=== PATIENT | male | born 1950 | race Caucasian/White ===

== ENCOUNTER 2021-01-03 08:12 | Inpatient (IN) ==
[2021-01-03] MEDS ORDERED: IOPAMIDOL 100 ML BOTTLE IV ONE (08:13)
--- NOTE | 2021-01-03 08:42 | Emergency Department Note ---
Altered Mental Status HPI General Chief Complaint: Altered Mental Status Stated Complaint: stroke symptoms Sunday Time Seen by Provider: 01/03/21 08:24 Source: patient, family, RN notes reviewed and old records reviewed Mode of arrival: ambulatory Limitations: altered mental status History of Present Illness HPI Narrative: Narrative: MD complaint: altered mental status, confusion and weakness Onset (ago): day(s) Timing confirmed by: spouse Consistency of Symptoms: getting worse Associated symptoms: Reports seizure, syncope, weakness and difficulty walking; Denies chest pain, cough, diaphoresis, fever, chills, headaches, loss of appetite, malaise, nausea/vomiting, rash, shortness of breath, foul smelling urine, diarrhea and incontinence Related Data Home Medications Medication Instructions Recorded Confirmed levothyroxine 125 mcg PO DAILY 01/02/19 01/03/21 losartan 25 mg PO DAILY 01/03/21 01/03/21 Allergies Allergy/AdvReac Type Severity Reaction Status Date / Time No Known Drug Allergies Allergy Verified 01/03/21 08:16 Review of Systems ROS ROS Narrative: Narrative: Limitations: ROS unobtainable due to patients medical condition [facility] Narrative Patient History Narrative: Narrative: Medical/Surgical/Family History All Active Problems (Updated 01/03/21 @ 15:40 by Anthony Lundberg MD) Altered mental status (Acute) Social History Smoking Status: Former smoker Exam Narrative Narrative: Narrative: General Limitations: altered mental status General appearance: Present alert and in no apparent distress Head Head: Present atraumatic and normocephalic Eye Eye: Present normal appearance, PERRL and EOMI ENT ENT: Present mucous membranes moist and other (Tongue bite moon) Neck Neck: Present normal inspection and full ROM Chest Chest: Present normal inspection; Absent tenderness Respiratory Respiratory: Present normal lung sounds bilaterally; Absent respiratory distress Cardiovascular Cardiovascular: Present regular rate and normal rhythm; Absent systolic murmur Adbominal Abdominal: Present soft; Absent distention, tenderness, guarding and rebound Extremities Extremities: Present normal inspection and full ROM; Absent tenderness, pedal edema and pretibial edema Back Back: Present normal inspection; Absent CVA tenderness (R) and CVA tenderness (L) Neurological Neurological: Present alert and CN II-XII intact; Absent oriented X3 (Patient is alert and knows his name but is confused to where he is at and what date it is), normal gait and motor sensory deficit Psychiatric Psychiatric: Present normal affect and normal mood Skin Skin: Present warm (WNL); Absent rash Course Course Course Narrative: Discussed patient with Dr. Garcia neurology at [facility] and [facility]. Recommends MRI, admission for observation, DC with diagnosis dementia if stable Vital Signs Vital signs: Vital Signs Temperature 98.5 F 01/03/21 08:12 Pulse Rate 92 H 01/03/21 08:12 Respiratory Rate 16 01/03/21 08:12 Blood Pressure 185/96 01/03/21 08:12 Pulse Oximetry (%) 98 01/03/21 08:12 Temperature 98.5 F 01/03/21 08:12 Pulse Rate 66 01/03/21 14:31 Respiratory Rate 15 01/03/21 15:31 Blood Pressure 172/95 01/03/21 15:31 Pulse Oximetry (%) 96 01/03/21 14:31 MDM MDM Narrative Medical decision making narrative: Narrative: Lab Data Result diagrams: 01/03/21 08:44 01/03/21 08:44 Labs: Lab Results 01/03/21 01/03/21 01/03/21 Range/Units 08:44 08:44 08:44 WBC 10.0 (4.5-11.0) K/mcL RBC 5.05 (4.50-5.90) M/mcL Hgb 16.7 H (13.5-16.5) g/dL Hct 49.6 (41.0-55.0) % MCV 98.2 (80.0-100.0) fL MCH 33.1 (26.0-34.0) pg MCHC 33.7 (31.0-36.0) g/dL RDW 13.4 (11.5-14.5) % Plt Count 280 (140-440) K/mcL MPV 10.4 (7.4-10.4) fL Neut % (Auto) 71.0 (38.0-78.0) % Lymph % (Auto) 15.0 (15.0-49.0) % [place] % (Auto) 11.8 (1.0-12.0) % Eos % (Auto) 1.1 (0.0-7.0) % Baso % (Auto) 1.1 (0.0-2.0) % Lymph # (Auto) 1.51 (1.50-4.80) K/mcL [place] # (Auto) 1.18 H (0.10-0.90) K/mcL Eos # (Auto) 0.11 (0.00-0.70) K/mcL Baso # (Auto) 0.11 (0.00-0.20) K/mcL Absolute Neutrophils 7.13 (1.80-8.00) K/mcL VBG Lactic Acid (0.5-2.0) mmol/L Sodium 135 (133-145) mmol/L Potassium 3.4 (3.3-5.1) mmol/L Chloride 99 (96-108) mmol/L Carbon Dioxide 24 (22-30) mmol/L Anion Gap 12.0 (8.0-16.0) BUN 16 (8-23) mg/dL Creatinine 1.1 (0.7-1.2) mg/dL GFR Calculation 67 Glucose 112 H (70-105) mg/dL Calcium 10.6 H (8.6-10.4) mg/dL Total Bilirubin 1.2 H (0.1-1.0) mg/dL AST 21 (<40) U/L ALT 18 (<40) U/L Alkaline Phosphatase 88 (39-117) U/L Ammonia (16-60) umol/L Troponin T < 0.01 (<0.03) ng/mL Total Protein 7.2 (5.9-8.4) gm/dL Albumin 4.4 (3.2-5.2) gm/dL Globulin 2.8 (2.2-3.7) gm/dL Albumin/Globulin Ratio 1.6 (1.0-2.3) Ethyl Alcohol (<0.010) gm/dL 01/03/21 01/03/21 01/03/21 Range/Units 08:44 09:00 09:00 WBC (4.5-11.0) K/mcL RBC (4.50-5.90) M/mcL Hgb (13.5-16.5) g/dL Hct (41.0-55.0) % MCV (80.0-100.0) fL MCH (26.0-34.0) pg MCHC (31.0-36.0) g/dL RDW (11.5-14.5) % Plt Count (140-440) K/mcL MPV (7.4-10.4) fL Neut % (Auto) (38.0-78.0) % Lymph % (Auto) (15.0-49.0) % [place] % (Auto) (1.0-12.0) % Eos % (Auto) (0.0-7.0) % Baso % (Auto) (0.0-2.0) % Lymph # (Auto) (1.50-4.80) K/mcL [place] # (Auto) (0.10-0.90) K/mcL Eos # (Auto) (0.00-0.70) K/mcL Baso # (Auto) (0.00-0.20) K/mcL Absolute Neutrophils (1.80-8.00) K/mcL VBG Lactic Acid 1.5 (0.5-2.0) mmol/L Sodium (133-145) mmol/L Potassium (3.3-5.1) mmol/L Chloride (96-108) mmol/L Carbon Dioxide (22-30) mmol/L Anion Gap (8.0-16.0) BUN (8-23) mg/dL Creatinine (0.7-1.2) mg/dL GFR Calculation Glucose (70-105) mg/dL Calcium (8.6-10.4) mg/dL Total Bilirubin (0.1-1.0) mg/dL AST (<40) U/L ALT (<40) U/L Alkaline Phosphatase (39-117) U/L Ammonia 22 (16-60) umol/L Troponin T (<0.03) ng/mL Total Protein (5.9-8.4) gm/dL Albumin (3.2-5.2) gm/dL Globulin (2.2-3.7) gm/dL Albumin/Globulin Ratio (1.0-2.3) Ethyl Alcohol < 0.010 (<0.010) gm/dL ED POC Tests ED POC Tests: [place] - SARS Antigen Negative EKG Data EKG #1: EKG attestation: Yes I reviewed and interpreted this EKG. EKG shows normal: sinus rhythm Rate: normal (99) Rhythm: NSR [place]/QRS: RBBB Interpretation: nonspecific ST-T wave changes Pulse Oximetry Data Pulse Ox %: 98 Interpretation: 98% on room air and within normal limits Discharge Plan Patient/Caregiver Discharge Instructions Pt seen by PROCESS LABORATORY SPECIALIST/PA only: No Clinical Impression: Altered mental status Patient Disposition: Xfer As Inpt ([facility]) Condition: Fair Follow up with: Chiara Bateman ARNP [Primary Care Provider] - Prescriptions: No Action levothyroxine 125 MCG tablet 125 mcg PO DAILY RF: 0 losartan 25 mg tablet 25 mg PO DAILY RF: 0
--- NOTE | 2021-01-03 09:30 | Cat Scan Report ---
CLINICAL INFORMATION: Altered mental status COMPARISON: None. TECHNIQUE: 2.5 mm helical slices were obtained in the skull base to vertex. Following reconstruction, axial reformatted images were reviewed at bone and parenchymal windows. The exam was performed using radiation dose optimization techniques including, but not limited to, automated exposure control, adjustment of the mA and/or kV according to patient size and use of iterative reconstruction technique. FINDINGS: The ventricles, sulci, fissures, and cisterns are normal in size and configuration. No extra-axial fluid collections are identified. 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 There is no evidence of hemorrhage, mass effect, or edema. Bone windows show no osseous abnormality. IMPRESSION: No acute disease. 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
--- NOTE | 2021-01-03 09:51 | XRay Report ---
CLINICAL INFORMATION: AMS COMPARISON: None. FINDINGS: Heart size, mediastinum and pulmonary vessels are normal for technique. Few tiny calcified granulomas in the perihilar regions noted. No infiltrates or effusions. IMPRESSION: Negative Interpreted and Authenticated by: Gomez Walter 01/03/21
[2021-01-03 09:53] LABS: Basophils # (Auto) 0.11 K/mcL (0.00-0.20); Basophils % (Auto) 1.1 % (0.0-2.0); Eosinophils # (Auto) 0.11 K/mcL (0.00-0.70); Eosinophils % (Auto) 1.1 % (0.0-7.0); Hematocrit 49.6 % (41.0-55.0); Hemoglobin 16.7 g/dL (13.5-16.5); Lymphocytes # (Auto) 1.51 K/mcL (1.50-4.80); Mean Cell Volume 98.2 fL (80.0-100.0); Mean Corpuscular HGB Conc 33.7 g/dL (31.0-36.0); Mean Platelet Volume 10.4 fL (7.4-10.4); Monocytes # (Auto) 1.18 K/mcL (0.10-0.90); Monocytes % (Auto) 11.8 % (1.0-12.0); Platelet Count 280 K/mcL (140-440); RBC 5.05 M/mcL (4.50-5.90); Red Cell Distribution Width 13.4 % (11.5-14.5)
[2021-01-03 10:16] LABS: ALT/SGPT 18 U/L (<40); AST/SGOT 21 U/L (<40); Albumin 4.4 gm/dL (3.2-5.2); Albumin/Globulin Ratio 1.6 (1.0-2.3); Alcohol, Blood < 10.0 mg/dL; Alcohol,Blood < 0.010 gm/dL (<0.010); Alkaline Phosphatase 88 U/L (39-117); Bilirubin,Total 1.2 mg/dL (0.1-1.0); Blood Urea Nitrogen 16 mg/dL (8-23); Calcium 10.6 mg/dL (8.6-10.4); Carbon Dioxide 24 mmol/L (22-30); Chloride 99 mmol/L (96-108); Globulin 2.8 gm/dL (2.2-3.7); Glomerular Filtration Rate 67; Glucose 112 mg/dL (70-105)
[2021-01-03] MEDS ORDERED: 0.9 % SODIUM CHLORIDE 1,000 ML IV ONE ×2 (11:34→15:42)
[2021-01-03] MEDS ORDERED: THIAMINE 100 MG in 0.9 % SODIUM CHLORIDE 50 ML IV ONE (11:49)
--- NOTE | 2021-01-03 12:18 | Cat Scan Report ---
CLINICAL INFORMATION: Acute mental status change. Stroke symptoms COMPARISON: None. TECHNIQUE: 80 cc of Isovue-370 were injected intravenously , and using SmartPrep to maximize cerebral arterial opacification, 0.625 mm helical slices were obtained from the skull base through the cerebral vertex. Following reconstruction , sagittal, coronal and axial reformatted images were processed and reviewed at multiple windows and levels. 3D volume rendered and MIP images were acquired at a independent workstation. The exam was performed using radiation dose optimization techniques including, but not limited to, automated exposure control, adjustment of the mA and/or kV according to patient size and use of iterative reconstruction technique. FINDINGS: The intracranial internal carotid, vertebral, basilar, intracranial anterior middle and posterior cerebral arteries are well-opacified and normal in contour and caliber without embolus, thrombus or significant stenosis. The superficial and deep cerebral veins and deep venous sinuses are patent. IMPRESSION: Normal. Interpreted and Authenticated by: Gomez Walter 01/03/21
--- NOTE | 2021-01-03 12:25 | Cat Scan Report ---
CLINICAL INFORMATION: Acute mental status change and stroke symptoms. COMPARISON: None. TECHNIQUE: 80 cc of Isovue-370 were injected intravenously, and using SmartPrep to maximize arterial opacification, 0.625 mm helical slices were obtained from the thoracic aortic arch through the [place] of [place]. Following reconstruction, 2.5mm sagittal, coronal and axial reformatted images were processed and reviewed at standard and bone algorithm/window. 3-D volume rendered, CPR and MIP images were processed using a [employer] work station.The exam was performed using radiation dose optimization techniques including, but not limited to, automated exposure control, adjustment of the mA and/or kV according to patient size and use of iterative reconstruction technique. FINDINGS: The aortic arch is normal diameter with diffuse intimal thickening. Aortic branching is conventional. The brachiocephalic, both subclavian and both vertebral arteries are widely patent. There is minimal fibrofatty plaque in the proximal right internal carotid artery, but no stenosis. The remaining right internal, external and common carotid arteries are widely patent. On the left side, there is a stenosis, less than 50% in the proximal internal carotid artery due to fibrofatty plaque in the posterior wall of the artery. The remaining left internal and the entire left external and left common carotid arteries widely patent. No soft tissue abnormalities. IMPRESSION: Less than 50% stenosis of the proximal left internal carotid artery. Exam is otherwise normal Interpreted and Authenticated by: Gomez Walter 01/03/21
--- NOTE | 2021-01-03 15:29 | Magnetic Resonance Report ---
CLINICAL INFORMATION: Confusion COMPARISON: CT angiogram head 01/03/2021 TECHNIQUE: Sagittal T1 FLAIR, axial diffusion and T2 FLAIR images were acquired FINDINGS: The ventricles, sulci, fissures and cisterns show mild symmetric enlargement patible with mild age-related atrophy-no extra-axial fluid collection or mass appreciated. Scattered chronic ischemic foci in deep cerebral white matter are less then typically seen in this age group. There are no regions of restricted diffusion suggest acute infarct. No hemorrhage, mass effect or edema. Signal void in intracerebral arteries are normal. IMPRESSION: Mild atrophy and scattered chronic ischemic foci in deep cerebral white matter-expected for age. No evidence of acute infarction or other acute intracerebral abnormality Interpreted and Authenticated by: Gomez Walter 01/03/21
--- NOTE | 2021-01-03 15:36 | Internal Med History&Physical ---
HPI History of Present Illness Patient information: Note initiated : 01/03/21 at 3:36 pm Service Date, if different from initiated Date: [] Patient: Sander Mcintosh a 70 y/o M admitted on for Stroke Symptoms Sunday. Chief Complaint: Confusion History of present illness: Mr. Mcintosh is a 70 year old M with history of hypertension/hypothyroidism who lives fairly independently. Patient is neighbor and friend Mackenzie found him in a state of days this morning. She subsequently called her son who is an EMT and recommended take him to the ER for evaluation for concerns of stroke symptom Initial work-up in the ER was unremarkable with a negative biochemical profile/CT head. Neurology was consulted and recommend MRI which is unremarkable for acute infarction, CT angiogram head neck negative for acute thrombosis. Hospital service was consulted for further evaluation due to persistent change in mental status. At the time of my evaluation patient is accompanied with friend Mackenzie. He was noted to answer any question and appears very confused. He is disoriented to time place and person. Most of the history was obtained from neighbor and ER physician. There however does not appear an asymmetric weakness or facial droop on initial exam. Telemetry monitoring shows sinus tachycardia with systolics 190. Review of systems Attempted but could not perform due to patient mental status PFSH PFSH All Active Problems (Updated 01/03/21 @ 15:40 by Anthony Lundberg MD) Altered mental status (Acute) MEDS/ALLERGIES Home Medications and Allergies Home Medications Medication Instructions Recorded Confirmed Type levothyroxine 125 mcg PO DAILY 01/02/19 01/03/21 History losartan 25 mg PO DAILY 01/03/21 01/03/21 History Allergies Allergy/AdvReac Type Severity Reaction Status Date / Time No Known Drug Allergies Allergy Verified 01/03/21 08:16 EXAM Constitutional Vitals: Temp Pulse Resp BP Pulse Ox 98.5 F 79 17 157/97 97 01/03/21 08:12 01/03/21 14:01 01/03/21 11:31 01/03/21 14:01 01/03/21 14:01 Confused and disoriented Head normocephalic Oral cavity dry No ear nose discharge Eye movement symmetrical Neck supple no lymphadenopathy S1-S2 tachycardia Nonlabored breathing Nondistended nontender abdomen Lower extremity no cyanosis clubbing or joint swelling Skin no suspicious lesion Psych anxious and confused Neuro -symmetrical strength, no obvious motor deficits DATA Data Completed and Pending Labs: Labs from last 24 hours 01/03/21 01/03/21 01/03/21 09:00 09:00 08:44 WBC RBC Hgb Hct MCV MCH MCHC RDW Plt Count MPV Neut % (Auto) Lymph % (Auto) [place] % (Auto) Eos % (Auto) Baso % (Auto) Lymph # (Auto) [place] # (Auto) Eos # (Auto) Baso # (Auto) Absolute Neutrophils VBG Lactic Acid 1.5 Sodium Potassium Chloride Carbon Dioxide Anion Gap BUN Creatinine GFR Calculation Glucose Calcium Total Bilirubin AST ALT Alkaline Phosphatase Ammonia 22 Troponin T Total Protein Albumin Globulin Albumin/Globulin Ratio Drug Screen Specimen Ethyl Alcohol < 0.010 01/03/21 01/03/21 01/03/21 08:44 08:44 08:44 WBC RBC Hgb Hct MCV MCH MCHC RDW Plt Count MPV Neut % (Auto) Lymph % (Auto) [place] % (Auto) Eos % (Auto) Baso % (Auto) Lymph # (Auto) [place] # (Auto) Eos # (Auto) Baso # (Auto) Absolute Neutrophils VBG Lactic Acid Sodium 135 Potassium 3.4 Chloride 99 Carbon Dioxide 24 Anion Gap 12.0 BUN 16 Creatinine 1.1 GFR Calculation 67 Glucose 112 H Calcium 10.6 H Total Bilirubin 1.2 H AST 21 ALT 18 Alkaline Phosphatase 88 Ammonia Troponin T < 0.01 Total Protein 7.2 Albumin 4.4 Globulin 2.8 Albumin/Globulin Ratio 1.6 Drug Screen Specimen Pending Ethyl Alcohol 01/03/21 08:44 WBC 10.0 RBC 5.05 Hgb 16.7 H Hct 49.6 MCV 98.2 MCH 33.1 MCHC 33.7 RDW 13.4 Plt Count 280 MPV 10.4 Neut % (Auto) 71.0 Lymph % (Auto) 15.0 [place] % (Auto) 11.8 Eos % (Auto) 1.1 Baso % (Auto) 1.1 Lymph # (Auto) 1.51 [place] # (Auto) 1.18 H Eos # (Auto) 0.11 Baso # (Auto) 0.11 Absolute Neutrophils 7.13 VBG Lactic Acid Sodium Potassium Chloride Carbon Dioxide Anion Gap BUN Creatinine GFR Calculation Glucose Calcium Total Bilirubin AST ALT Alkaline Phosphatase Ammonia Troponin T Total Protein Albumin Globulin Albumin/Globulin Ratio Drug Screen Specimen Ethyl Alcohol A/P Narrative A/P Narrative: * Acute change in mental status-unclear etiology. Patient is not on psychotropic drugs, no evidence of infection with normal WBC/lactate/absence of fever/neck stiffness. No significant metabolic derangement except for calcium 10.6. Negative neuroimaging. Admit as observation. Start thiamine. Urine drug screen pending. * Suboptimally controlled hypertension-continue home medication, hydralazine as needed * Hypercalcemia likely secondary to volume depletion continue crystalloids * History of hypothyroid continue toxin * Minimal elevation of bilirubin without right upper quadrant tenderness. Continue to monitor * Prophylaxis Heparin Plan * Observation admit * Crystalloids * Supportive treatment * Urine drug screen/UA * Nutrition support Time Spent With Patient Time: Total time spent is greater than 50% in coordination of care (as documented) at patient's floor/unit and/or counseling patient:
[2021-01-03] MEDS ORDERED: ONDANSETRON 4 MG ODT TABLET SL PRN (17:09)
[2021-01-03] MEDS ORDERED: ACETAMINOPHEN 650 MG/65 ML BAG IV PRN (17:09)
[2021-01-03] MEDS ORDERED: MAGNESIUM SULFATE 2 GM/50 ML BAG IV PRN (17:09)
[2021-01-03] MEDS ORDERED: POLYETHYLENE GLYCOL 3350 17 GM PACKET PO PRN (17:09)
[2021-01-03] MEDS ORDERED: 0.9 % SODIUM CHLORIDE 1,000 ML IV SCH (17:09)
[2021-01-03] MEDS ORDERED: POTASSIUM CHLORIDE 40 MEQ in DEXTROSE 5% IN WATER 500 ML IV PRN (17:09)
[2021-01-03] MEDS ORDERED: METOPROLOL TARTRATE 5 MG/5 ML VIAL IV PRN (17:09)
[2021-01-03] MEDS ORDERED: BISACODYL 10 MG SUPP.RECT PR PRN (17:09)
[2021-01-03] MEDS ORDERED: ONDANSETRON 4 MG/2 ML VIAL IV PRN (17:09)
[2021-01-03] MEDS ORDERED: THIAMINE 100 MG in 0.9 % SODIUM CHLORIDE 50 ML IV SCH (17:09)
[2021-01-03] MEDS: hydrALAZINE 20 MG/ML VIAL IV PRN (17:30)
[2021-01-03] MEDS: 0.9 % SODIUM CHLORIDE 1,000 ML IV SCH (18:35)
[2021-01-03] MEDS ORDERED: POTASSIUM CHLORIDE 20 MEQ/10 ML VIAL IV ONE (18:45)
[2021-01-03] MEDS ORDERED: LORazepam 2 MG/ML VIAL ONE (19:27)
[2021-01-03] MEDS ORDERED: LORazepam 2 MG/ML VIAL IV ONE (19:28)
[2021-01-03] MEDS ORDERED: levETIRAcetam 500 MG in 0.9 % SODIUM CHLORIDE 100 ML IV ONE (19:29)
[2021-01-03] MEDS ORDERED: levETIRAcetam 1,000 MG in 0.9 % SODIUM CHLORIDE 100 ML IV ONE (19:34)
[2021-01-03] MEDS: SENNOSIDES/DOCUSATE SODIUM 1 TAB TABLET PO SCH (20:04)
[2021-01-03] MEDS: DOCUSATE SODIUM 100 MG CAPSULE PO SCH (20:04)
[2021-01-03] MEDS: 0.9 % SODIUM CHLORIDE 10 ML SYRINGE IV SCH (20:04)
[2021-01-03] MEDS: HEPARIN 5,000 UNIT/ML VIAL SQ SCH (20:05)
[2021-01-03] MEDS ORDERED: levETIRAcetam 500 MG in 0.9 % SODIUM CHLORIDE 100 ML IV SCH (21:00)
[2021-01-03 21:55] LABS: Appearance,Urine CLEAR (Clear); Bilirubin,Urine Negative (Negative); Color,Urine YELLOW; Culture Indicated,Urine No; Glucose,Urine (UA) Negative (Negative); Ketones,Urine 20 mg/dL (Negative); Leukocyte Esterase,Urine Negative /ug (Negative); Mucus,Urine FEW /hpf; Nitrate,Urine Negative (Negative); Protein,Urine Negative (Negative); Specific Gravity,Urine 1.028 (1.000-1.035); Urine Blood 0.03 mg/dL (Negative); Urine RBC 8 /hpf (0-3); Urine Squamous Epithelial Cell < 1 /hpf (0-4); Urine WBC 5 /hpf (0-4)
[2021-01-04] MEDS: 0.9 % SODIUM CHLORIDE 10 ML SYRINGE IV SCH ×3 (05:02→20:20)
[2021-01-04] MEDS: hydrALAZINE 20 MG/ML VIAL IV PRN ×2 (06:02→21:10)
[2021-01-04 07:09] LABS: Basophils # (Auto) 0.09 K/mcL (0.00-0.20); Basophils % (Auto) 0.9 % (0.0-2.0); Eosinophils # (Auto) 0.08 K/mcL (0.00-0.70); Eosinophils % (Auto) 0.8 % (0.0-7.0); Hematocrit 47.4 % (41.0-55.0); Hemoglobin 15.8 g/dL (13.5-16.5); Lymphocytes # (Auto) 1.41 K/mcL (1.50-4.80); Mean Cell Volume 98.5 fL (80.0-100.0); Mean Corpuscular HGB Conc 33.3 g/dL (31.0-36.0); Mean Platelet Volume 10.7 fL (7.4-10.4); Neutrophils % (Auto) 73.3 % (38.0-78.0); Platelet Count 274 K/mcL (140-440); RBC 4.81 M/mcL (4.50-5.90); Red Cell Distribution Width 13.4 % (11.5-14.5)
[2021-01-04 08:04] LABS: ALT/SGPT 14 U/L (<40); AST/SGOT 17 U/L (<40); Albumin 3.9 gm/dL (3.2-5.2); Albumin/Globulin Ratio 1.4 (1.0-2.3); Alkaline Phosphatase 78 U/L (39-117); Bilirubin,Direct 0.2 mg/dL (<0.3); Bilirubin,Total 0.8 mg/dL (0.1-1.0); Blood Urea Nitrogen 12 mg/dL (8-23); Calcium 10.1 mg/dL (8.6-10.4); Carbon Dioxide 21 mmol/L (22-30); Chloride 107 mmol/L (96-108); Globulin 2.7 gm/dL (2.2-3.7); Glomerular Filtration Rate 85; Glucose 85 mg/dL (70-105); Lactate Dehydrogenase 264 U/L (135-225); Triglycerides 110 mg/dL (<150); Uric Acid 6.3 mg/dL (2.5-8.0)
[2021-01-04] MEDS: THIAMINE 100 MG in 0.9 % SODIUM CHLORIDE 50 ML IV SCH (09:02)
[2021-01-04] MEDS: 0.9 % SODIUM CHLORIDE 1,000 ML IV SCH ×3 (09:03→19:48)
[2021-01-04] MEDS: DOCUSATE SODIUM 100 MG CAPSULE PO SCH ×2 (09:08→20:21)
[2021-01-04] MEDS: HEPARIN 5,000 UNIT/ML VIAL SQ SCH ×2 (09:08→20:21)
[2021-01-04] MEDS: levETIRAcetam 500 MG TABLET PO SCH ×2 (09:09→20:21)
[2021-01-04] MEDS: LEVOTHYROXINE 125 MCG TABLET PO SCH (09:09)
[2021-01-04] MEDS: ACETAMINOPHEN 325 MG TABLET PO PRN (09:09)
[2021-01-04] MEDS: LOSARTAN 25 MG TABLET PO SCH (09:09)
[2021-01-04] MEDS: MULTIVIT,THER IRON,CA,FA & MIN 1 TABLET PO SCH (09:10)
--- NOTE | 2021-01-04 12:16 | Internal Med Progress Note ---
SUBJECTIVE Subjective Patient information: Note initiated : 01/04/21 at 12:12 pm Service Date, if different from initiated Date: [] Patient: Sander Mcintosh a 70 y/o M admitted on 01/03/21 for Stroke Symptoms Sunday. Chief Complaint: [] Interval history: Mr. Mcintosh is a 70 year old M with history of hypertension/hypothyroidism who lives fairly independently. Patient is neighbor and friend Mackenzie found him in a state of days this morning. She subsequently called her son who is an EMT and recommended take him to the ER for evaluation for concerns of stroke symptom Initial work-up in the ER was unremarkable with a negative biochemical prof ile/CT head. Neurology was consulted and recommend MRI which is unremarkable for acute infarction, CT angiogram head neck negative for acute thrombosis. Hospital service was consulted for further evaluation due to persistent change in mental status. At the time of my evaluation patient is accompanied with friend Mackenzie. He was noted to answer any question and appears very confused. He is disoriented to time place and person. Most of the history was obtained from neighbor and ER physician. There however does not appear an asymmetric weakness or facial droop on initial exam. Telemetry monitoring shows sinus tachycardia with systolics 190. 5/4-patient experienced generalized tonic-clonic seizure last evening. Status post Keppra load and 500 Keppra twice daily. Doing well. Remains encephalopathic. Case discussed with anesthesia Dr. Galaviz. Will undergo lumbar puncture today. Hemoglobin 15.8 white count normal, phosphorus 2, UA unremarkable, calcium 10.1. Afebrile Constitutional Vitals: Vital Signs Temp Pulse Resp BP Pulse Ox 98.2 F 92 H 16 163/94 94 01/04/21 08:08 01/03/21 16:31 01/04/21 10:17 01/04/21 10:17 01/04/21 08:08 Period Temp Pulse Resp BP Sys/Rodriguez Pulse Ox Last 24 Hr 98.0 F-99.0 F 66-99 11-28 121-192/68-159 87-99 Intake and Output 01/03/21 01/04/21 01/04/21 21:59 05:59 13:59 Intake Total 2161 760 1000 Output Total 2 302 250 Balance 2159 458 750 Weight 95.878 kg Alert but confused to time place and person Nonlabored breathing No telemetry events Minimal anxiety Intake & Output: Intake & Output 01/03/21 01/04/21 01/04/21 21:59 05:59 13:59 Intake Total 2161 760 1000 Output Total 2 302 250 Balance 2159 458 750 Weight 95.878 kg Intake: IV 2161 520 1000 Sodium Chloride 0.9% 1,000 ml @ 2000 1000 100 mls/hr IV .Q10H [facility]IGDALIA Rx#: [id number] Potassium Chloride 40 Meq In 520 Dextrose 5% in Water 500 ml @ 130 mls/hr IV UD PRN Rx#: [id number] Vitamin B1 100 mg In Sodium 51 Chloride 0.9% 50 ml @ 50 mls/hr IV ONCE ONE Rx#:[id number] Keppra 1,000 mg In Sodium 110 Chloride 0.9% 100 ml @ 200 mls/ hr IV ONCE ONE Rx#:[id number] Oral 240 Output: Void Amount 300 250 # of times incontinent of urine 2 2 Other: Meal Dinner Percent of Meal Consumed 25% Feeding Ability Needs Supervision Urine Appearance Clear Urine Color Dark Yellow Dark Cassie OBJ DATA Labs CBC & Chem 7: 01/04/21 05:00 01/04/21 05:00 Labs: Abnormal Lab Results 01/04/21 01/04/21 01/03/21 05:00 05:00 21:00 Hgb MPV 10.7 H Lymph % (Auto) 14.0 L Lymph # (Auto) 1.41 L [place] # (Auto) 1.10 H Carbon Dioxide 21 L Glucose Calcium Phosphorus 2.0 L Total Bilirubin Lactate Dehydrogenase 264 H Urine Ketones 20 A Urine Urobilinogen 4.0 A Urine RBC 8 H Urine WBC 5 H Urine Mucus Few A 01/03/21 01/03/21 08:44 08:44 Hgb 16.7 H MPV Lymph % (Auto) Lymph # (Auto) [place] # (Auto) 1.18 H Carbon Dioxide Glucose 112 H Calcium 10.6 H Phosphorus Total Bilirubin 1.2 H Lactate Dehydrogenase Urine Ketones Urine Urobilinogen Urine RBC Urine WBC Urine Mucus Meds: Medications Acetaminophen (Acetaminophen 325 Mg Tablet) 650 mg PO Q4-6HP PRN; Protocol PRN Reason: Per Pain Protocol/Fever > 101 Last Admin: 01/04/21 09:09 Dose: 650 mg Documented by: Bisacodyl (Bisacodyl 10 Mg Supp.Rect) 10 mg [place] Q2-3DAYS PRN PRN Reason: Constipation Docusate Sodium (Docusate Sodium 100 Mg Capsule) 100 mg PO BID [facility] Last Admin: 01/04/21 09:08 Dose: 100 mg Documented by: Heparin Sodium (Porcine) (Heparin 5,000 Unit/Ml Vial) 5,000 unit SQ Q12 [facility]IG[facility]AL[facility] Last Admin: 01/04/21 09:08 Dose: 5,000 unit Documented by: Hydralazine HCl (Hydralazine 20 Mg/Ml Vial) 10 mg IV Q4-6HP PRN PRN Reason: Hypertension Last Admin: 01/04/21 06:02 Dose: 10 mg Documented by: Potassium Chloride 40 meq/ (Dextrose) 520 mls @ 130 mls/hr IV UD PRN PRN Reason: K+ = or < 3.5 Last Infusion: 01/04/21 00:13 Dose: Infused Documented by: Magnesium Sulfate (Magnesium Sulfate) 2 gm in 50 mls @ 50 mls/hr IV UD PRN PRN Reason: MG = or < 1.7 Acetaminophen (Ofirmev) 650 mg in 65 mls @ 130 mls/hr IV Q6HP PRN; Protocol PRN Reason: Per Pain Protocol/Fever > 101 Sodium Chloride (Sodium Chloride 0.9%) 1,000 mls @ 100 mls/hr IV .Q10H [facility] Last Admin: 01/04/21 09:03 Dose: 100 mls/hr Documented by: Thiamine HCl 100 mg/ Sodium (Chloride) 51 mls @ 50 mls/hr IV DAILY [facility] Stop: 01/05/21 10:02 Last Admin: 01/04/21 09:02 Dose: 50 mls/hr Documented by: Iron Carb/Multivit/[place]/Folic Acid (Multivit,Ther Iron,Ca,Fa & Min 1 Tablet) 1 tab PO DAILY [facility] Last Admin: 01/04/21 09:10 Dose: 1 tab Documented by: Levetiracetam (Levetiracetam 500 Mg Tablet) 500 mg PO BID [facility] Last Admin: 01/04/21 09:09 Dose: 500 mg Documented by: Levothyroxine Sodium (Levothyroxine 125 Mcg Tablet) 125 mcg PO ACB [facility] Last Admin: 01/04/21 09:09 Dose: 125 mcg Documented by: Losartan Potassium (Losartan 25 Mg Tablet) 25 mg PO DAILY [facility] Last Admin: 01/04/21 09:09 Dose: 25 mg Documented by: Melatonin (Melatonin 3 Mg Tablet) 3 mg PO HSP PRN PRN Reason: Insomnia Metoprolol Tartrate (Metoprolol Tartrate 5 Mg/5 Ml Vial) 5 mg IV Q5M PRN PRN Reason: Heart Rate > 140 bpm Ondansetron HCl (Ondansetron 4 Mg Odt Tablet) 4 mg SL Q4-6HP PRN; Protocol PRN Reason: Nausea And Vomiting Last Admin: 01/04/21 09:09 Dose: 4 mg Documented by: Ondansetron HCl (Ondansetron 4 Mg/2 Ml Vial) 4 mg IV Q4-6HP PRN; Protocol PRN Reason: Nausea And Vomiting Polyethylene Glycol (Polyethylene Glycol 3350 17 Gm Packet) 17 gm PO DAILYP PRN PRN Reason: Constipation Senna/Docusate Sodium (Sennosides/Docusate Sodium 1 Tab Tablet) 1 tab PO HS [facility] Last Admin: 01/03/21 20:04 Dose: Not Given Documented by: Sodium Chloride (0.9 % Sodium Chloride 10 Ml Syringe) 10 ml IV Q8 [facility] Last Admin: 01/04/21 05:02 Dose: 10 ml Documented by: A/P Narrative A/P Narrative: * Acute change in mental status-rule out acute encephalitis secondary to infectious etiology. Lumbar puncture today. Negative neuroimaging. Continue thiamine. * New onset generalized tonic-clonic seizure currently on Keppra. Seizure-free since Keppra load * Suboptimally controlled hypertension-continue home medication, hydralazine as needed, start beta-lauri * Hypercalcemia likely secondary to volume depletion -resolved with crystalloids * History of hypothyroid continue thyroxine * Minimal elevation of bilirubin without right upper quadrant tenderness. Normalized * Prophylaxis Heparin(held for LP) Plan * Transition to inpatient status * Lumbar puncture * Start beta-lauri * Continue supportive treatment Time Spent With Patient Time: Total time spent is greater than 50% in coordination of care (as documented) at patient's floor/unit and/or counseling patient: QUALITY Stroke Onset of Symptoms Date: 01/01/21 Symptom Onset Unknown: Yes VTE Deep Vein Thrombosis/Pulmonary Embolism Present on Admission: No
[2021-01-04] MEDS ORDERED: NEUTRA PHOS 1 PACKET PO PRN (12:23)
[2021-01-04] MEDS: METOPROLOL TARTRATE 25 MG TABLET PO SCH ×2 (13:03→20:20)
[2021-01-04 17:14] LABS: Appearance,CSF Clear; Nucleated Cells,CSF 0 /cumm (0-5); Red Blood Cell,CSF 2 /cumm (0-1)
[2021-01-04 17:19] LABS: Glucose,CSF 69 mg/dL (40-70)
[2021-01-04] MEDS: POTASSIUM CHLORIDE 20 MEQ TABLET PO PRN (17:42)
[2021-01-04] MEDS: MELATONIN 3 MG TABLET PO PRN (20:20)
[2021-01-04] MEDS: SENNOSIDES/DOCUSATE SODIUM 1 TAB TABLET PO SCH (20:21)
[2021-01-05] MEDS: 0.9 % SODIUM CHLORIDE 1,000 ML IV SCH ×3 (04:20→11:34)
[2021-01-05] MEDS: 0.9 % SODIUM CHLORIDE 10 ML SYRINGE IV SCH ×3 (06:03→21:04)
[2021-01-05] MEDS: LEVOTHYROXINE 125 MCG TABLET PO SCH (06:39)
[2021-01-05 07:11] LABS: Basophils % (Auto) 1.1 % (0.0-2.0); Eosinophils # (Auto) 0.09 K/mcL (0.00-0.70); Hematocrit 47.9 % (41.0-55.0); Hemoglobin 16.1 g/dL (13.5-16.5); Lymphocytes # (Auto) 1.49 K/mcL (1.50-4.80); Lymphocytes % (Auto) 15.8 % (15.0-49.0); Mean Cell Volume 97.6 fL (80.0-100.0); Mean Corpuscular HGB Conc 33.6 g/dL (31.0-36.0); Mean Platelet Volume 10.8 fL (7.4-10.4); Monocytes % (Auto) 10.6 % (1.0-12.0); Neutrophils % (Auto) 71.5 % (38.0-78.0); Platelet Count 292 K/mcL (140-440); RBC 4.91 M/mcL (4.50-5.90); Red Cell Distribution Width 13.2 % (11.5-14.5); WBC 9.5 K/mcL (4.5-11.0)
[2021-01-05 07:42] LABS: ALT/SGPT 12 U/L (<40); AST/SGOT 13 U/L (<40); Albumin 3.9 gm/dL (3.2-5.2); Albumin/Globulin Ratio 1.5 (1.0-2.3); Alkaline Phosphatase 78 U/L (39-117); Bilirubin,Direct 0.2 mg/dL (<0.3); Bilirubin,Total 0.7 mg/dL (0.1-1.0); Blood Urea Nitrogen 11 mg/dL (8-23); Carbon Dioxide 19 mmol/L (22-30); Chloride 106 mmol/L (96-108); Globulin 2.6 gm/dL (2.2-3.7); Glomerular Filtration Rate 89; Glucose 98 mg/dL (70-105); Lactate Dehydrogenase 189 U/L (135-225); Phosphorous 1.9 mg/dL (2.5-4.5); Triglycerides 123 mg/dL (<150); Uric Acid 5.6 mg/dL (2.5-8.0)
[2021-01-05] MEDS: LOSARTAN 25 MG TABLET PO SCH (08:07)
[2021-01-05] MEDS: METOPROLOL TARTRATE 25 MG TABLET PO SCH ×2 (08:07→21:04)
[2021-01-05] MEDS: HEPARIN 5,000 UNIT/ML VIAL SQ SCH ×2 (08:07→21:04)
[2021-01-05] MEDS: MULTIVIT,THER IRON,CA,FA & MIN 1 TABLET PO SCH (08:07)
[2021-01-05] MEDS: DOCUSATE SODIUM 100 MG CAPSULE PO SCH ×2 (08:07→21:03)
[2021-01-05] MEDS: THIAMINE 100 MG in 0.9 % SODIUM CHLORIDE 50 ML IV SCH (08:07)
[2021-01-05] MEDS: levETIRAcetam 500 MG TABLET PO SCH (08:07)
[2021-01-05] MEDS: POTASSIUM CHLORIDE 20 MEQ TABLET PO PRN (09:16)
--- NOTE | 2021-01-05 09:28 | XRay Report ---
CLINICAL INFORMATION: Interval Change COMPARISON: 01/03/2021 FINDINGS: Heart size, mediastinum and pulmonary vessels are normal. Lungs are clear. No effusions. IMPRESSION: Normal Interpreted and Authenticated by: Gomez Walter 01/05/21
[2021-01-05] MEDS ORDERED: OLANZapine 10 MG VIAL IM ONE (11:00)
--- NOTE | 2021-01-05 11:40 | Internal Med Progress Note ---
SUBJECTIVE Subjective Patient information: Note initiated : 01/05/21 at 11:37 am Service Date, if different from initiated Date: [] Patient: Sander Mcintosh a 70 y/o M admitted on 01/03/21 for Stroke Symptoms Sunday. Chief Complaint: [] Interval history: Mr. Mcintosh is a 70 year old M with history of hypertension/hypothyroidism who lives fairly independently. Patient is neighbor and friend Mackenzie found him in a state of days this morning. She subsequently called her son who is an EMT and recommended take him to the ER for evaluation for concerns of stroke symptom Initial work-up in the ER was unremarkable with a negative biochemical prof ile/CT head. Neurology was consulted and recommend MRI which is unremarkable for acute infarction, CT angiogram head neck negative for acute thrombosis. Hospital service was consulted for further evaluation due to persistent change in mental status. At the time of my evaluation patient is accompanied with friend Mackenzie. He was noted to answer any question and appears very confused. He is disoriented to time place and person. Most of the history was obtained from neighbor and ER physician. There however does not appear an asymmetric weakness or facial droop on initial exam. Telemetry monitoring shows sinus tachycardia with systolics 190. 5/4-patient experienced generalized tonic-clonic seizure last evening. Status post Keppra load and 500 Keppra twice daily. Doing well. Remains encephalopathic. Case discussed with anesthesia Dr. Galaviz. Will undergo lumbar puncture today. Hemoglobin 15.8 white count normal, phosphorus 2, UA unremarkable, calcium 10.1. Afebrile 5/5 patient remains encephalopathic.-On Keppra twice daily. No further seizure activity. However very confused. Agitation requiring antipsychotics, start Precedex drip, stable labs, urine drug screen pending, sodium 138 potassium 3.5 calcium 10, CSF studies 0 nucleated cell with normal protein and glucose. Continue monitoring. Constitutional Vitals: Vital Signs Temp Pulse Resp BP Pulse Ox 98.1 F 74 18 165/93 94 01/05/21 10:01 01/05/21 00:36 01/05/21 04:01 01/05/21 10:01 01/05/21 04:27 Period Temp Pulse Resp BP Sys/Rodriguez Pulse Ox Last 24 Hr 97.8 F-99.1 F 74-77 18 136-185/90-118 91-97 Intake and Output 01/04/21 01/05/21 01/05/21 21:59 05:59 13:59 Intake Total 1340 1425 116 Output Total 200 476 1 Balance 1140 949 115 Weight 94.801 kg agitated and confused Nonlabored breathing No further seizure episodes No telemetry events Intake & Output: Intake & Output 01/04/21 01/05/21 01/05/21 21:59 05:59 13:59 Intake Total 1340 1425 116 Output Total 200 476 1 Balance 1140 949 115 Weight 94.801 kg Intake: IV 1000 1000 116 Sodium Chloride 0.9% 1,000 ml @ 1000 1000 100 mls/hr IV .Q10H [facility] Rx#: [id number] Vitamin B1 100 mg In Sodium 51 Chloride 0.9% 50 ml @ 50 mls/hr IV DAILY [facility]IG[facility] Rx#:[id number] Oral 340 425 Output: Void Amount 200 475 # of times incontinent of urine 1 1 Other: Meal Lunch Percent of Meal Consumed 75% Urine Appearance Clear Clear Urine Color Dark Yellow Bright Yellow OBJ DATA Labs CBC & Chem 7: 01/05/21 05:00 01/05/21 05:00 Labs: Abnormal Lab Results 01/05/21 01/05/21 01/04/21 05:00 05:00 15:00 Hgb MPV 10.8 H Lymph % (Auto) Lymph # (Auto) 1.49 L [place] # (Auto) 1.00 H Carbon Dioxide 19 L Glucose Calcium Phosphorus 1.9 L Total Bilirubin Lactate Dehydrogenase Urine Ketones Urine Urobilinogen Urine RBC Urine WBC Urine Mucus CSF RBC 2 H 01/04/21 01/04/21 01/03/21 05:00 05:00 21:00 Hgb MPV 10.7 H Lymph % (Auto) 14.0 L Lymph # (Auto) 1.41 L [place] # (Auto) 1.10 H Carbon Dioxide 21 L Glucose Calcium Phosphorus 2.0 L Total Bilirubin Lactate Dehydrogenase 264 H Urine Ketones 20 A Urine Urobilinogen 4.0 A Urine RBC 8 H Urine WBC 5 H Urine Mucus Few A CSF RBC 01/03/21 01/03/21 08:44 08:44 Hgb 16.7 H MPV Lymph % (Auto) Lymph # (Auto) [place] # (Auto) 1.18 H Carbon Dioxide Glucose 112 H Calcium 10.6 H Phosphorus Total Bilirubin 1.2 H Lactate Dehydrogenase Urine Ketones Urine Urobilinogen Urine RBC Urine WBC Urine Mucus CSF RBC Meds: Medications Acetaminophen (Acetaminophen 325 Mg Tablet) 650 mg PO Q4-6HP PRN; Protocol PRN Reason: Per Pain Protocol/Fever > 101 Last Admin: 01/04/21 09:09 Dose: 650 mg Documented by: Bisacodyl (Bisacodyl 10 Mg Supp.Rect) 10 mg [place] Q2-3DAYS PRN PRN Reason: Constipation Docusate Sodium (Docusate Sodium 100 Mg Capsule) 100 mg PO BID [facility] Last Admin: 01/05/21 08:07 Dose: 100 mg Documented by: Heparin Sodium (Porcine) (Heparin 5,000 Unit/Ml Vial) 5,000 unit SQ Q12 [facility] Last Admin: 01/05/21 08:07 Dose: 5,000 unit Documented by: Hydralazine HCl (Hydralazine 20 Mg/Ml Vial) 10 mg IV Q4-6HP PRN PRN Reason: Hypertension Last Admin: 01/04/21 21:10 Dose: 10 mg Documented by: Potassium Chloride 40 meq/ (Dextrose) 520 mls @ 130 mls/hr IV UD PRN PRN Reason: K+ = or < 3.5 Last Infusion: 01/04/21 00:13 Dose: Infused Documented by: Magnesium Sulfate (Magnesium Sulfate) 2 gm in 50 mls @ 50 mls/hr IV UD PRN PRN Reason: MG = or < 1.7 Acetaminophen (Ofirmev) 650 mg in 65 mls @ 130 mls/hr IV Q6HP PRN; Protocol PRN Reason: Per Pain Protocol/Fever > 101 Last Infusion: 01/05/21 10:08 Dose: Infused Documented by: Sodium Chloride (Sodium Chloride 0.9%) 1,000 mls @ 100 mls/hr IV .Q10H [facility] Last Admin: 01/05/21 11:34 Dose: Not Given Documented by: Iron Carb/Multivit/[place]/Folic Acid (Multivit,Ther Iron,Ca,Fa & Min 1 Tablet) 1 tab PO DAILY [facility] Last Admin: 01/05/21 08:07 Dose: 1 tab Documented by: Levetiracetam (Levetiracetam 500 Mg Tablet) 500 mg PO BID [facility] Last Admin: 01/05/21 08:07 Dose: 500 mg Documented by: Levothyroxine Sodium (Levothyroxine 125 Mcg Tablet) 125 mcg PO ACB [facility] Last Admin: 01/05/21 06:39 Dose: 125 mcg Documented by: Losartan Potassium (Losartan 25 Mg Tablet) 25 mg PO DAILY [facility] Last Admin: 01/05/21 08:07 Dose: 25 mg Documented by: Melatonin (Melatonin 3 Mg Tablet) 3 mg PO HSP PRN PRN Reason: Insomnia Last Admin: 01/04/21 20:20 Dose: 3 mg Documented by: Metoprolol Tartrate (Metoprolol Tartrate 5 Mg/5 Ml Vial) 5 mg IV Q5M PRN PRN Reason: Heart Rate > 140 bpm Metoprolol Tartrate (Metoprolol Tartrate 25 Mg Tablet) 12.5 mg PO BID [facility] Last Admin: 01/05/21 08:07 Dose: 12.5 mg Documented by: Ondansetron HCl (Ondansetron 4 Mg Odt Tablet) 4 mg SL Q4-6HP PRN; Protocol PRN Reason: Nausea And Vomiting Last Admin: 01/04/21 09:09 Dose: 4 mg Documented by: Ondansetron HCl (Ondansetron 4 Mg/2 Ml Vial) 4 mg IV Q4-6HP PRN; Protocol PRN Reason: Nausea And Vomiting Polyethylene Glycol (Polyethylene Glycol 3350 17 Gm Packet) 17 gm PO DAILYP PRN PRN Reason: Constipation Potassium Chloride (Potassium Chloride 20 Meq Tablet) 40 meq PO UD PRN PRN Reason: hypokalemia Last Admin: 01/05/21 09:16 Dose: 40 meq Documented by: Potassium/Phosphorus/Sodium (Neutra Phos 1 Packet) 2 packet PO DAILY PRN PRN Reason: PHOS <2.5 Last Admin: 01/05/21 09:16 Dose: 2 packet Documented by: Senna/Docusate Sodium (Sennosides/Docusate Sodium 1 Tab Tablet) 1 tab PO HS [facility] Last Admin: 01/04/21 20:21 Dose: 1 tab Documented by: Sodium Chloride (0.9 % Sodium Chloride 10 Ml Syringe) 10 ml IV Q8 [facility] Last Admin: 01/05/21 06:03 Dose: 10 ml Documented by: A/P Narrative A/P Narrative: * Acute change in mental status-negative CSF studies. Negative neuroimaging. Increased psychomotor agitation now on Precedex drip. Continue IV thiamine. * New onset generalized tonic-clonic seizure -currently on Keppra. Seizure-free since 36-hour * Suboptimally controlled hypertension-on TRAVON inhibitor/beta-lauri and as needed hydralazine * Hypercalcemia likely secondary to volume depletion -resolved with crystalloids * History of hypothyroid continue thyroxine * Minimal elevation of bilirubin without right upper quadrant tenderness. Normalized * Prophylaxis Heparin(held for LP) Plan * Continue close monitoring * Precedex drip * Hypertension management * Continue supportive treatment * Watch bed Time Spent With Patient Time: Critical care time 35 minutes on management of acute encephalitis QUALITY Stroke Onset of Symptoms Date: 01/01/21 Symptom Onset Unknown: Yes VTE Deep Vein Thrombosis/Pulmonary Embolism Present on Admission: No
[2021-01-05] MEDS: DEXMEDETOMIDINE 400 MCG in PREMIX 1 BAG IV SCH ×3 (11:41→21:52)
[2021-01-05] MEDS ORDERED: DEXMEDETOMIDINE 400 MCG in PREMIX 1 BAG IV SCH (11:45)
[2021-01-05 12:52] LABS: Amphetamine Screen,Urine None detected; Barbiturate Screen,Urine None detected; Benzodiazepines Screen,Urine None detected; Cannabinoid Screen,Urine Suspect Positive; Cocaine Screen,Urine None detected; Opiate Screen,Urine None detected; Oxycodone, Urine Screen None detected; Phencyclidine Screen,Urine None detected
[2021-01-05] MEDS ORDERED: LORazepam 2 MG/ML VIAL IV ONE (13:27)
[2021-01-05] MEDS: 0.9 % SODIUM CHLORIDE 250 ML IV SCH (19:00)
[2021-01-05] MEDS ORDERED: cefTRIAXone 2 GM VIAL ONE (20:47)
[2021-01-05] MEDS: SENNOSIDES/DOCUSATE SODIUM 1 TAB TABLET PO SCH (21:04)
[2021-01-05] MEDS: cefTRIAXone 2 GM in DEXTROSE 5% IN WATER 50 ML IV SCH (21:04)
[2021-01-05] MEDS: levETIRAcetam 500 MG in 0.9 % SODIUM CHLORIDE 100 ML IV SCH (21:54)
[2021-01-06] MEDS: 0.9 % SODIUM CHLORIDE 1,000 ML IV SCH ×3 (01:03→17:47)
[2021-01-06] MEDS: DEXMEDETOMIDINE 400 MCG in PREMIX 1 BAG IV SCH ×2 (04:25→14:03)
[2021-01-06] MEDS: 0.9 % SODIUM CHLORIDE 10 ML SYRINGE IV SCH ×3 (05:24→21:06)
[2021-01-06 07:41] LABS: Basophils # (Auto) 0.08 K/mcL (0.00-0.20); Basophils % (Auto) 1.3 % (0.0-2.0); Eosinophils # (Auto) 0.16 K/mcL (0.00-0.70); Eosinophils % (Auto) 2.6 % (0.0-7.0); Hematocrit 45.2 % (41.0-55.0); Hemoglobin 14.8 g/dL (13.5-16.5); Lymphocytes % (Auto) 17.6 % (15.0-49.0); Mean Cell Volume 100.4 fL (80.0-100.0); Mean Corpuscular HGB Conc 32.7 g/dL (31.0-36.0); Mean Platelet Volume 10.8 fL (7.4-10.4); Monocytes # (Auto) 0.65 K/mcL (0.10-0.90); Monocytes % (Auto) 10.4 % (1.0-12.0); Neutrophils % (Auto) 68.1 % (38.0-78.0); Platelet Count 229 K/mcL (140-440); Red Cell Distribution Width 13.4 % (11.5-14.5); WBC 6.2 K/mcL (4.5-11.0)
[2021-01-06] MEDS: 0.9 % SODIUM CHLORIDE 250 ML IV SCH ×2 (08:00→20:37)
[2021-01-06] MEDS: ACETAMINOPHEN 325 MG TABLET PO PRN (08:14)
[2021-01-06] MEDS: HEPARIN 5,000 UNIT/ML VIAL SQ SCH ×2 (08:14→20:48)
[2021-01-06] MEDS: LEVOTHYROXINE 125 MCG TABLET PO SCH (08:14)
[2021-01-06] MEDS: DOCUSATE SODIUM 100 MG CAPSULE PO SCH ×2 (08:14→20:40)
[2021-01-06] MEDS: MULTIVIT,THER IRON,CA,FA & MIN 1 TABLET PO SCH (08:14)
[2021-01-06] MEDS: cefTRIAXone 2 GM in DEXTROSE 5% IN WATER 50 ML IV SCH (08:15)
[2021-01-06] MEDS: levETIRAcetam 500 MG in 0.9 % SODIUM CHLORIDE 100 ML IV SCH ×2 (09:26→20:49)
[2021-01-06] MEDS: METOPROLOL TARTRATE 25 MG TABLET PO SCH ×2 (10:01→20:48)
[2021-01-06] MEDS: LOSARTAN 25 MG TABLET PO SCH (10:01)
[2021-01-06 10:14] LABS: ALT/SGPT 11 U/L (<40); AST/SGOT 16 U/L (<40); Albumin 3.4 gm/dL (3.2-5.2); Albumin/Globulin Ratio 1.5 (1.0-2.3); Alkaline Phosphatase 72 U/L (39-117); Bilirubin,Direct < 0.2 mg/dL (0-0.3); Bilirubin,Total 0.5 mg/dL (0.1-1.0); Blood Urea Nitrogen 12 mg/dL (8-23); Calcium 9.8 mg/dL (8.6-10.4); Carbon Dioxide 21 mmol/L (22-30); Chloride 111 mmol/L (96-108); Globulin 2.3 gm/dL (2.2-3.7); Glomerular Filtration Rate 85; Glucose 95 mg/dL (70-105); Lactate Dehydrogenase 180 U/L (135-225); Phosphorous 2.9 mg/dL (2.5-4.5); Triglycerides 116 mg/dL (<150); Uric Acid 6.4 mg/dL (2.5-8.0)
--- NOTE | 2021-01-06 13:02 | Internal Med Progress Note ---
SUBJECTIVE Subjective Patient information: Note initiated : 01/06/21 at 12:57 pm Service Date, if different from initiated Date: [] Patient: Sander Mcintosh a 70 y/o M admitted on 01/03/21 for Stroke Symptoms Sunday. Chief Complaint: [] Interval history: Mr. Mcintosh is a 70 year old M with history of hypertension/hypothyroidism who lives fairly independently. Patient is neighbor and friend Mackenzie found him in a state of days this morning. She subsequently called her son who is an EMT and recommended take him to the ER for evaluation for concerns of stroke symptom Initial work-up in the ER was unremarkable with a negative biochemical prof ile/CT head. Neurology was consulted and recommend MRI which is unremarkable for acute infarction, CT angiogram head neck negative for acute thrombosis. Hospital service was consulted for further evaluation due to persistent change in mental status. At the time of my evaluation patient is accompanied with friend Mackenzie. He was noted to answer any question and appears very confused. He is disoriented to time place and person. Most of the history was obtained from neighbor and ER physician. There however does not appear an asymmetric weakness or facial droop on initial exam. Telemetry monitoring shows sinus tachycardia with systolics 190. 5/-patient experienced generalized tonic-clonic seizure last evening. Status post Keppra load and 500 Keppra twice daily. Doing well. Remains encephalopathic. Case discussed with anesthesia Dr. Galaviz. Will undergo lumbar puncture today. Hemoglobin 15.8 white count normal, phosphorus 2, UA unremarkable, calcium 10.1. Afebrile 01/05 patient remains encephalopathic.-On Keppra twice daily. No further seizure activity. However very confused. Agitation requiring antipsychotics, start Precedex drip, stable labs, urine drug screen pending, sodium 138 potassium 3.5 calcium 10, CSF studies 0 nucleated cell with normal protein and glucose. Continue monitoring. 01/06 patient clinically improving. More lucid alert and respond to commands. Oriented to time in place. Precedex weaned off. Continuing Keppra IV. No overnight seizures, stable hemodynamics, no telemetry events. Neuroimaging and labs unremarkable. Continue dietary intervention/therapies as tolerated. Constitutional Vitals: Vital Signs Temp Pulse Resp BP Pulse Ox 97.1 F 74 12 137/98 96 01/06/21 08:02 01/05/21 00:36 01/06/21 10:00 01/06/21 10:00 01/06/21 10:00 Period Temp Pulse Resp BP Sys/Rodriguez Pulse Ox Last 24 Hr 96.6 F-99.5 F 10-24 77-157/47-116 89-98 Intake and Output 01/05/21 01/06/21 01/06/21 21:59 05:59 13:59 Intake Total 1143 628 177 Output Total 1 353 400 Balance 1142 275 -223 Weight 94.999 kg Alert and oriented Nonlabored breathing No telemetry events No anxiety Intake & Output: Intake & Output 01/05/21 01/06/21 01/06/21 21:59 05:59 13:59 Intake Total 1143 628 177 Output Total 1 353 400 Balance 1142 275 -223 Weight 94.999 kg Intake: IV 1143 268 177 Sodium Chloride 0.9% 1,000 ml @ 1000 100 mls/hr IV .Q10H [facility] Rx#: [id number] Precedex 400 Mcg/100 ml 143 113 22 Dextrose 400 Mcg In Premix 1 Bag @ 0.2 MCG/KG/HR 4.74 mls/hr IV .Q21H6M [facility] Rx#:[id number] Rocephin 2 gm In Dextrose 5% in 50 50 Water 50 ml @ 100 mls/hr IV Q24H [facility] Rx#:[id number] Keppra 500 mg In Sodium 105 105 Chloride 0.9% 100 ml @ 200 mls/ hr IV Q12 [facility] Rx#:[id number] Oral 0 360 Output: Void Amount 350 400 # of times incontinent of urine 1 3 Other: Urine Appearance Clear Clear Urine Color Dark Yellow Bright Yellow Urine Odor Normal Stool Size Moderate Stool Color Brown Stool Consistency Loose OBJ DATA Labs CBC & Chem 7: 01/06/21 05:39 01/06/21 05:39 Labs: Abnormal Lab Results 01/06/21 01/06/21 01/05/21 05:39 05:39 10:38 MCV 100.4 H MPV 10.8 H Lymph % (Auto) Lymph # (Auto) 1.10 L [place] # (Auto) Chloride 111 H Carbon Dioxide 21 L Phosphorus Lactate Dehydrogenase Total Protein 5.7 L Urine Ketones Urine Urobilinogen Urine RBC Urine WBC Urine Mucus CSF RBC U Marijuana (THC) Screen Suspect positive A 01/05/21 01/05/2101/04/21 05:00 05:00 15:00 MCV MPV 10.8 H Lymph % (Auto) Lymph # (Auto) 1.49 L [place] # (Auto) 1.00 H Chloride Carbon Dioxide 19 L Phosphorus 1.9 L Lactate Dehydrogenase Total Protein Urine Ketones Urine Urobilinogen Urine RBC Urine WBC Urine Mucus CSF RBC 2 H U Marijuana (THC) Screen 01/04/21 01/04/21 01/03/21 05:00 05:00 21:00 MCV MPV 10.7 H Lymph % (Auto) 14.0 L Lymph # (Auto) 1.41 L [place] # (Auto) 1.10 H Chloride Carbon Dioxide 21 L Phosphorus 2.0 L Lactate Dehydrogenase 264 H Total Protein Urine Ketones 20 A Urine Urobilinogen 4.0 A Urine RBC 8 H Urine WBC 5 H Urine Mucus Few A CSF RBC U Marijuana (THC) Screen Meds: Medications Acetaminophen (Acetaminophen 325 Mg Tablet) 650 mg PO Q4-6HP PRN; Protocol PRN Reason: Per Pain Protocol/Fever > 101 Last Admin: 01/06/21 08:14 Dose: 650 mg Documented by: Bisacodyl (Bisacodyl 10 Mg Supp.Rect) 10 mg CO Q2-3DAYS PRN PRN Reason: Constipation Docusate Sodium (Docusate Sodium 100 Mg Capsule) 100 mg PO BID [facility] Last Admin: 01/06/21 08:14 Dose: 100 mg Documented by: Heparin Sodium (Porcine) (Heparin 5,000 Unit/Ml Vial) 5,000 unit SQ Q12 [facility] Last Admin: 01/06/21 08:14 Dose: 5,000 unit Documented by: Hydralazine HCl (Hydralazine 20 Mg/Ml Vial) 10 mg IV Q4-6HP PRN PRN Reason: Hypertension Last Admin: 01/04/21 21:10 Dose: 10 mg Documented by: Potassium Chloride 40 meq/ (Dextrose) 520 mls @ 130 mls/hr IV UD PRN PRN Reason: K+ = or < 3.5 Last Infusion: 01/04/21 00:13 Dose: Infused Documented by: Magnesium Sulfate (Magnesium Sulfate) 2 gm in 50 mls @ 50 mls/hr IV UD PRN PRN Reason: MG = or < 1.7 Acetaminophen (Ofirmev) 650 mg in 65 mls @ 130 mls/hr IV Q6HP PRN; Protocol PRN Reason: Per Pain Protocol/Fever > 101 Last Infusion: 01/05/21 10:08 Dose: Infused Documented by: Sodium Chloride (Sodium Chloride 0.9%) 1,000 mls @ 100 mls/hr IV .Q10H [facility] Last Admin: 01/06/21 05:21 Dose: 100 mls/hr Documented by: Dexmedetomidine HCl 400 mcg/ (Premix) 100 mls @ 4.74 mls/hr IV .Q21H6M [facility]; Protocol Last Titration: 01/06/21 07:23 Dose: 0 mcg/kg/hr, 0 mls/hr Documented by: Ceftriaxone Sodium 2 gm/ (Dextrose) 50 mls @ 100 mls/hr IV Q24H [facility]; Protocol Last Infusion: 01/06/21 08:45 Dose: Infused Documented by: Levetiracetam 500 mg/ Sodium (Chloride) 105 mls @ 200 mls/hr IV Q12 [facility] Last Infusion: 01/06/21 10:01 Dose: Infused Documented by: Sodium Chloride (Sodium Chloride 0.9%) 250 mls @ 20 mls/hr IV .[id number] [facility] Last Admin: 01/05/21 19:00 Dose: 20 mls/hr Documented by: Iron Carb/Multivit/Gray/Folic Acid (Multivit,Ther Iron,Ca,Fa & Min 1 Tablet) 1 tab PO DAILY [facility] Last Admin: 01/06/21 08:14 Dose: 1 tab Documented by: Levothyroxine Sodium (Levothyroxine 125 Mcg Tablet) 125 mcg PO ACB [facility] Last Admin: 01/06/21 08:14 Dose: 125 mcg Documented by: Losartan Potassium (Losartan 25 Mg Tablet) 25 mg PO DAILY [facility] Last Admin: 01/06/21 10:01 Dose: Not Given Documented by: Melatonin (Melatonin 3 Mg Tablet) 3 mg PO HSP PRN PRN Reason: Insomnia Last Admin: 01/04/21 20:20 Dose: 3 mg Documented by: Metoprolol Tartrate (Metoprolol Tartrate 5 Mg/5 Ml Vial) 5 mg IV Q5M PRN PRN Reason: Heart Rate > 140 bpm Metoprolol Tartrate (Metoprolol Tartrate 25 Mg Tablet) 12.5 mg PO BID [facility] Last Admin: 01/06/21 10:01 Dose: Not Given Documented by: Ondansetron HCl (Ondansetron 4 Mg Odt Tablet) 4 mg SL Q4-6HP PRN; Protocol PRN Reason: Nausea And Vomiting Last Admin: 01/04/21 09:09 Dose: 4 mg Documented by: Ondansetron HCl (Ondansetron 4 Mg/2 Ml Vial) 4 mg IV Q4-6HP PRN; Protocol PRN Reason: Nausea And Vomiting Polyethylene Glycol (Polyethylene Glycol 3350 17 Gm Packet) 17 gm PO DAILYP PRN PRN Reason: Constipation Potassium Chloride (Potassium Chloride 20 Meq Tablet) 40 meq PO UD PRN PRN Reason: hypokalemia Last Admin: 01/05/21 09:16 Dose: 40 meq Documented by: Potassium/Phosphorus/Sodium (Neutra Phos 1 Packet) 2 packet PO DAILY PRN PRN Reason: PHOS <2.5 Last Admin: 01/05/21 09:16 Dose: 2 packet Documented by: Senna/Docusate Sodium (Sennosides/Docusate Sodium 1 Tab Tablet) 1 tab PO HS [facility] Last Admin: 01/05/21 21:04 Dose: Not Given Documented by: Sodium Chloride (0.9 % Sodium Chloride 10 Ml Syringe) 10 ml IV Q8 [facility] Last Admin: 01/06/21 05:24 Dose: Not Given Documented by: A/P Narrative A/P Narrative: * Acute change in mental status-secondary to seizures. Negative CSF studies. Negative neuroimaging. Continue thiamine, off Precedex drip. * New onset generalized tonic-clonic seizure -seizure free on Keppra for over 3 days * Suboptimally controlled hypertension-much improved on TRAVON inhibitor/beta- lauri and as needed hydralazine * Hypercalcemia likely secondary to volume depletion -resolved with crystalloids * History of hypothyroid continue thyroxine * Minimal elevation of bilirubin without right upper quadrant tenderness. Normalized * Prophylaxis Heparin(held for LP) Plan * Continue Keppra * Therapies as tolerated * Nutrition support Time Spent With Patient Time: Total time spent is greater than 50% in coordination of care (as docum ented) at patient's floor/unit and/or counseling patient: QUALITY Stroke Onset of Symptoms Date: 01/01/21 Symptom Onset Unknown: Yes VTE Deep Vein Thrombosis/Pulmonary Embolism Present on Admission: No
[2021-01-06] MEDS ORDERED: cloNIDine HCL 0.1 MG TABLET PO PRN (14:31)
[2021-01-06] MEDS: SENNOSIDES/DOCUSATE SODIUM 1 TAB TABLET PO SCH (20:41)
[2021-01-07] MEDS: MELATONIN 3 MG TABLET PO PRN ×2 (00:09→22:49)
[2021-01-07] MEDS: 0.9 % SODIUM CHLORIDE 1,000 ML IV SCH ×3 (04:00→23:23)
[2021-01-07] MEDS: DEXMEDETOMIDINE 400 MCG in PREMIX 1 BAG IV SCH (05:37)
[2021-01-07] MEDS: 0.9 % SODIUM CHLORIDE 10 ML SYRINGE IV SCH ×3 (05:37→21:44)
[2021-01-07] MEDS: LEVOTHYROXINE 125 MCG TABLET PO SCH (07:41)
[2021-01-07 07:59] LABS: Basophils # (Auto) 0.07 K/mcL (0.00-0.20); Basophils % (Auto) 0.9 % (0.0-2.0); Eosinophils # (Auto) 0.12 K/mcL (0.00-0.70); Eosinophils % (Auto) 1.6 % (0.0-7.0); Hematocrit 45.1 % (41.0-55.0); Lymphocytes # (Auto) 1.22 K/mcL (1.50-4.80); Lymphocytes % (Auto) 16.5 % (15.0-49.0); Mean Cell Volume 98.7 fL (80.0-100.0); Mean Corpuscular HGB Conc 33.3 g/dL (31.0-36.0); Mean Platelet Volume 10.6 fL (7.4-10.4); Monocytes # (Auto) 0.68 K/mcL (0.10-0.90); Monocytes % (Auto) 9.2 % (1.0-12.0); Neutrophils % (Auto) 71.8 % (38.0-78.0); Platelet Count 245 K/mcL (140-440); RBC 4.57 M/mcL (4.50-5.90); Red Cell Distribution Width 13.2 % (11.5-14.5); WBC 7.4 K/mcL (4.5-11.0)
[2021-01-07] MEDS: DOCUSATE SODIUM 100 MG CAPSULE PO SCH ×2 (09:09→20:43)
[2021-01-07] MEDS: LOSARTAN 25 MG TABLET PO SCH (09:14)
[2021-01-07] MEDS: METOPROLOL TARTRATE 25 MG TABLET PO SCH ×2 (09:14→20:43)
[2021-01-07] MEDS: MULTIVIT,THER IRON,CA,FA & MIN 1 TABLET PO SCH (09:16)
[2021-01-07] MEDS: HEPARIN 5,000 UNIT/ML VIAL SQ SCH ×2 (09:17→20:43)
[2021-01-07 09:50] LABS: ALT/SGPT 13 U/L (<40); AST/SGOT 18 U/L (<40); Albumin 3.6 gm/dL (3.2-5.2); Albumin/Globulin Ratio 1.5 (1.0-2.3); Alkaline Phosphatase 78 U/L (39-117); Bilirubin,Direct < 0.2 mg/dL (0-0.3); Bilirubin,Total 0.4 mg/dL (0.1-1.0); Blood Urea Nitrogen 9 mg/dL (8-23); Calcium 9.8 mg/dL (8.6-10.4); Carbon Dioxide 21 mmol/L (22-30); Chloride 110 mmol/L (96-108); Globulin 2.4 gm/dL (2.2-3.7); Glomerular Filtration Rate 85; Glucose 79 mg/dL (70-105); Lactate Dehydrogenase 235 U/L (135-225); Phosphorous 2.5 mg/dL (2.5-4.5); Triglycerides 123 mg/dL (<150); Uric Acid 6.3 mg/dL (2.5-8.0)
[2021-01-07] MEDS: cefTRIAXone 2 GM in DEXTROSE 5% IN WATER 50 ML IV SCH (10:24)
[2021-01-07] MEDS: levETIRAcetam 500 MG in 0.9 % SODIUM CHLORIDE 100 ML IV SCH (11:25)
--- NOTE | 2021-01-07 12:07 | Internal Med Progress Note ---
SUBJECTIVE Subjective Patient information: Note initiated : 01/07/21 at 12:04 pm Service Date, if different from initiated Date: [] Patient: Sander Mcintosh a 70 y/o M admitted on 01/03/21 for Stroke Symptoms Sunday. Chief Complaint: [] Interval history: Mr. Mcintosh is a 70 year old M with history of hypertension/hypothyroidism who lives fairly independently. Patient is neighbor and friend Mackenzie found him in a state of days this morning. She subsequently called her son who is an EMT and recommended take him to the ER for evaluation for concerns of stroke symptom Initial work-up in the ER was unremarkable with a negative biochemical prof ile/CT head. Neurology was consulted and recommend MRI which is unremarkable for acute infarction, CT angiogram head neck negative for acute thrombosis. Hospital service was consulted for further evaluation due to persistent change in mental status. At the time of my evaluation patient is accompanied with friend Mackenzie. He was noted to answer any question and appears very confused. He is disoriented to time place and person. Most of the history was obtained from neighbor and ER physician. There however does not appear an asymmetric weakness or facial droop on initial exam. Telemetry monitoring shows sinus tachycardia with systolics 190. 01/04-patient experienced generalized tonic-clonic seizure last evening. Status post Keppra load and 500 Keppra twice daily. Doing well. Remains encephalopathic. Case discussed with anesthesia Dr. Galaviz. Will undergo lumbar puncture today. Hemoglobin 15.8 white count normal, phosphorus 2, UA unremarkable, calcium 10.1. Afebrile 01/05 patient remains encephalopathic.-On Keppra twice daily. No further seizure activity. However very confused. Agitation requiring antipsychotics, start Precedex drip, stable labs, urine drug screen pending, sodium 138 potassium 3.5 calcium 10, CSF studies 0 nucleated cell with normal protein and glucose. Continue monitoring. 01/06 patient clinically improving. More lucid alert and respond to commands. Oriented to time in place. Precedex weaned off. Continuing Keppra IV. No overnight seizures, stable hemodynamics, no telemetry events. Neuroimaging and labs unremarkable. Continue dietary intervention/therapies as tolerated. 01/07-patient experienced seizure last night. Keppra dose increased to 750 twice daily. More lucid alert and conversant. Able to ambulate. Ongoing therapies. Tolerating diet. Continue uptitrating Keppra to effect. Continue telemetry monitoring. Blood pressure systolics in excess of 180. Added amlodipine/increased dose of metoprolol twice daily along with losartan 25. Constitutional Vitals: Vital Signs Temp Pulse Resp BP Pulse Ox 98.2 F 74 16 163/89 93 01/07/21 08:00 01/05/21 00:36 01/07/21 10:05 01/07/21 10:05 01/07/21 10:05 Period Temp Pulse Resp BP Sys/Rodriguez Pulse Ox Last 24 Hr 98.2 F-99.6 F 134-191/83-132 90-97 Intake and Output 01/06/21 01/07/21 01/07/21 21:59 05:59 13:59 Intake Total 2185 1300 450 Output Total 1 5 2 Balance 2184 1295 448 Weight 96.615 kg Alert responding commands, minimal confusion Nonlabored breathing No anxiety Telemetry no events Intake & Output: Intake & Output 01/06/21 01/07/21 01/07/21 21:59 05:59 13:59 Intake Total 2185 1300 450 Output Total 1 5 2 Balance 2184 1295 448 Weight 96.615 kg Intake: IV 1225 1000 50 Sodium Chloride 0.9% 1,000 ml @ 1000 1000 100 mls/hr IV .Q10H [facility] Rx#: [id number] Sodium Chloride 0.9% 250 ml @ 120 20 mls/hr IV .[id number] [facility] Rx#: [id number] Precedex 400 Mcg/100 ml 0 Dextrose 400 Mcg In Premix 1 Bag @ 0.2 MCG/KG/HR 4.74 mls/hr IV .Q21H6M [facility] Rx#:[id number] Rocephin 2 gm In Dextrose 5% in 50 Water 50 ml @ 100 mls/hr IV Q24H [facility] Rx#:[id number] Keppra 500 mg In Sodium 105 Chloride 0.9% 100 ml @ 200 mls/ hr IV Q12 [facility] Rx#:[id number] Oral 960 300 400 Output: # of times incontinent of urine 1 5 2 Other: Meal Dinner Breakfast Percent of Meal Consumed 50% Refused Feeding Ability Independent # Voids 1 # of times incontinent of 0 Bowels OBJ DATA Labs CBC & Chem 7: 01/07/21 05:45 01/07/21 05:45 Labs: Abnormal Lab Results 01/07/21 01/07/21 01/06/21 05:45 05:45 05:39 MCV MPV 10.6 H Lymph # (Auto) 1.22 L [place] # (Auto) Chloride 110 H 111 H Carbon Dioxide 21 L 21 L Phosphorus Lactate Dehydrogenase 235 H Total Protein 5.7 L CSF RBC U Marijuana (THC) Screen 01/06/21 01/05/21 01/05/21 05:39 10:38 05:00 MCV 100.4 H MPV 10.8 H Lymph # (Auto) 1.10 L [place] # (Auto) Chloride Carbon Dioxide 19 L Phosphorus 1.9 L Lactate Dehydrogenase Total Protein CSF RBC U Marijuana (THC) Screen Suspect positive A 01/05/21 01/04/21 05:00 15:00 MCV MPV 10.8 H Lymph # (Auto) 1.49 L [place] # (Auto) 1.00 H Chloride Carbon Dioxide Phosphorus Lactate Dehydrogenase Total Protein CSF RBC 2 H U Marijuana (THC) Screen Meds: Medications Acetaminophen (Acetaminophen 325 Mg Tablet) 650 mg PO Q4-6HP PRN; Protocol PRN Reason: Per Pain Protocol/Fever > 101 Last Admin: 01/06/21 08:14 Dose: 650 mg Documented by: Bisacodyl (Bisacodyl 10 Mg Supp.Rect) 10 mg MN Q2-3DAYS PRN PRN Reason: Constipation Clonidine HCl (Clonidine Hcl 0.1 Mg Tablet) 0.1 mg PO Q6-8HP PRN PRN Reason: Agitation Docusate Sodium (Docusate Sodium 100 Mg Capsule) 100 mg PO BID [facility] [place] Last Admin: 01/07/21 09:09 Dose: Not Given Documented by: Heparin Sodium (Porcine) (Heparin 5,000 Unit/Ml Vial) 5,000 unit SQ Q12 [facility] Last Admin: 01/07/21 09:17 Dose: 5,000 unit Documented by: Hydralazine HCl (Hydralazine 20 Mg/Ml Vial) 10 mg IV Q4-6HP PRN PRN Reason: Hypertension Last Admin: 01/04/21 21:10 Dose: 10 mg Documented by: Potassium Chloride 40 meq/ (Dextrose) 520 mls @ 130 mls/hr IV UD PRN PRN Reason: K+ = or < 3.5 Last Infusion: 01/04/21 00:13 Dose: Infused Documented by: Magnesium Sulfate (Magnesium Sulfate) 2 gm in 50 mls @ 50 mls/hr IV UD PRN PRN Reason: MG = or < 1.7 Acetaminophen (Ofirmev) 650 mg in 65 mls @ 130 mls/hr IV Q6HP PRN; Protocol PRN Reason: Per Pain Protocol/Fever > 101 Last Infusion: 01/05/21 10:08 Dose: Infused Documented by: Sodium Chloride (Sodium Chloride 0.9%) 1,000 mls @ 100 mls/hr IV .Q10H [facility] [place] Last Admin: 01/07/21 04:00 Dose: 100 mls/hr Documented by: Ceftriaxone Sodium 2 gm/ (Dextrose) 50 mls @ 100 mls/hr IV Q24H [facility] [place]; Protocol Last Infusion: 01/07/21 10:55 Dose: Infused Documented by: Sodium Chloride (Sodium Chloride 0.9%) 250 mls @ 20 mls/hr IV .[id number] [facility] [place] Last Admin: 01/06/21 20:37 Dose: Not Given Documented by: Iron Carb/Multivit/[place]/Folic Acid (Multivit,Ther Iron,Ca,Fa & Min 1 Tablet) 1 tab PO DAILY [facility] [place] Last Admin: 01/07/21 09:16 Dose: 1 tab Documented by: Levetiracetam (Levetiracetam 500 Mg Tablet) 750 mg PO BID [facility] [place] Levothyroxine Sodium (Levothyroxine 125 Mcg Tablet) 125 mcg PO ACB [facility] [place] Last Admin: 01/07/21 07:41 Dose: 125 mcg Documented by: Losartan Potassium (Losartan 25 Mg Tablet) 25 mg PO DAILY [facility] [place] Last Admin: 01/07/21 09:14 Dose: 25 mg Documented by: Melatonin (Melatonin 3 Mg Tablet) 3 mg PO HSP PRN PRN Reason: Insomnia Last Admin: 01/07/21 00:09 Dose: 3 mg Documented by: Metoprolol Tartrate (Metoprolol Tartrate 5 Mg/5 Ml Vial) 5 mg IV Q5M PRN PRN Reason: Heart Rate > 140 bpm Metoprolol Tartrate (Metoprolol Tartrate 25 Mg Tablet) 12.5 mg PO BID [facility] [place] Last Admin: 01/07/21 09:14 Dose: 12.5 mg Documented by: Ondansetron HCl (Ondansetron 4 Mg Odt Tablet) 4 mg SL Q4-6HP PRN; Protocol PRN Reason: Nausea And Vomiting Last Admin: 01/04/21 09:09 Dose: 4 mg Documented by: Ondansetron HCl (Ondansetron 4 Mg/2 Ml Vial) 4 mg IV Q4-6HP PRN; Protocol PRN Reason: Nausea And Vomiting Polyethylene Glycol (Polyethylene Glycol 3350 17 Gm Packet) 17 gm PO DAILYP PRN PRN Reason: Constipation Potassium Chloride (Potassium Chloride 20 Meq Tablet) 40 meq PO UD PRN PRN Reason: hypokalemia Last Admin: 01/05/21 09:16 Dose: 40 meq Documented by: Potassium/Phosphorus/Sodium (Neutra Phos 1 Packet) 2 packet PO DAILY PRN PRN Reason: PHOS <2.5 Last Admin: 01/05/21 09:16 Dose: 2 packet Documented by: Senna/Docusate Sodium (Sennosides/Docusate Sodium 1 Tab Tablet) 1 tab PO HS [facility] Last Admin: 01/06/21 20:41 Dose: Not Given Documented by: Sodium Chloride (0.9 % Sodium Chloride 10 Ml Syringe) 10 ml IV Q8 [facility] Last Admin: 01/07/21 05:37 Dose: 10 ml Documented by: A/P Narrative A/P Narrative: * Acute change in mental status-secondary to seizures. Negative CSF studies. Negative neuroimaging/urine drug screen/biochemical profile. Continue thiamine, off Precedex drip. * New onset generalized tonic-clonic seizure -increase Keppra to 750 twice daily * Suboptimally controlled hypertension-much improved on TRAVON inhibitor/increased dose of beta-lauri, CCB and as needed hydralazine * Hypercalcemia secondary to volume depletion -resolved with crystalloids * History of hypothyroid continue thyroxine * Minimal elevation of bilirubin without right upper quadrant tenderness. Normalized * Prophylaxis Heparin(held for LP) Plan * Continue Keppra * Optimize hypertension management * Nutrition support/PT OT * discharge planning Time Spent With Patient Time: Total time spent is greater than 50% in coordination of care (as documented) at patient's floor/unit and/or counseling patient: QUALITY Stroke Onset of Symptoms Date: 01/01/21 Symptom Onset Unknown: Yes VTE Deep Vein Thrombosis/Pulmonary Embolism Present on Admission: No
[2021-01-07] MEDS: POTASSIUM CHLORIDE 20 MEQ TABLET PO PRN (12:08)
[2021-01-07] MEDS: hydrALAZINE 20 MG/ML VIAL IV PRN ×3 (12:10→22:32)
[2021-01-07] MEDS ORDERED: levETIRAcetam 500 MG TABLET PO ONE (12:18)
[2021-01-07] MEDS ORDERED: levETIRAcetam 500 MG in 0.9 % SODIUM CHLORIDE 100 ML IV ONE (12:30)
[2021-01-07] MEDS ORDERED: METOPROLOL TARTRATE 25 MG TABLET PO ONE (13:32)
[2021-01-07] MEDS: 0.9 % SODIUM CHLORIDE 250 ML IV SCH ×2 (16:27→20:49)
[2021-01-07] MEDS ORDERED: LORazepam 2 MG/ML VIAL ONE (18:57)
[2021-01-07] MEDS: LORazepam 2 MG/ML VIAL IV PRN ×2 (18:58→23:40)
[2021-01-07] MEDS: SENNOSIDES/DOCUSATE SODIUM 1 TAB TABLET PO SCH (20:43)
[2021-01-07] MEDS: levETIRAcetam 1,000 MG in 0.9 % SODIUM CHLORIDE 100 ML IV SCH (20:43)
[2021-01-07] MEDS ORDERED: levETIRAcetam 500 MG TABLET PO SCH ×2 (21:00)
[2021-01-08] MEDS: 0.9 % SODIUM CHLORIDE 1,000 ML IV SCH ×4 (02:15→16:15)
[2021-01-08] MEDS: 0.9 % SODIUM CHLORIDE 10 ML SYRINGE IV SCH ×3 (05:44→21:39)
[2021-01-08 06:50] LABS: Basophils # (Auto) 0.07 K/mcL (0.00-0.20); Basophils % (Auto) 0.9 % (0.0-2.0); Eosinophils % (Auto) 1.3 % (0.0-7.0); Hematocrit 43.7 % (41.0-55.0); Hemoglobin 14.6 g/dL (13.5-16.5); Lymphocytes # (Auto) 1.01 K/mcL (1.50-4.80); Lymphocytes % (Auto) 13.1 % (15.0-49.0); Mean Cell Volume 98.9 fL (80.0-100.0); Mean Corpuscular HGB Conc 33.4 g/dL (31.0-36.0); Mean Platelet Volume 10.6 fL (7.4-10.4); Monocytes # (Auto) 0.74 K/mcL (0.10-0.90); Monocytes % (Auto) 9.6 % (1.0-12.0); Neutrophils % (Auto) 75.1 % (38.0-78.0); Platelet Count 243 K/mcL (140-440); RBC 4.42 M/mcL (4.50-5.90); Red Cell Distribution Width 13.2 % (11.5-14.5); WBC 7.7 K/mcL (4.5-11.0)
[2021-01-08 07:15] LABS: ALT/SGPT 13 U/L (<40); AST/SGOT 17 U/L (<40); Albumin 3.3 gm/dL (3.2-5.2); Albumin/Globulin Ratio 1.4 (1.0-2.3); Alkaline Phosphatase 71 U/L (39-117); Bilirubin,Direct < 0.2 mg/dL (0-0.3); Bilirubin,Total 0.5 mg/dL (0.1-1.0); Blood Urea Nitrogen 9 mg/dL (8-23); Calcium 9.8 mg/dL (8.6-10.4); Carbon Dioxide 22 mmol/L (22-30); Chloride 109 mmol/L (96-108); Globulin 2.4 gm/dL (2.2-3.7); Glomerular Filtration Rate 85; Glucose 92 mg/dL (70-105); Lactate Dehydrogenase 237 U/L (135-225); Phosphorous 2.7 mg/dL (2.5-4.5); Triglycerides 118 mg/dL (<150); Uric Acid 6.1 mg/dL (2.5-8.0)
[2021-01-08] MEDS: HEPARIN 5,000 UNIT/ML VIAL SQ SCH ×2 (08:16→20:36)
[2021-01-08] MEDS: METOPROLOL TARTRATE 25 MG TABLET PO SCH ×2 (08:16→20:36)
[2021-01-08] MEDS: cefTRIAXone 2 GM in DEXTROSE 5% IN WATER 50 ML IV SCH (08:17)
[2021-01-08] MEDS: LOSARTAN 25 MG TABLET PO SCH (08:17)
[2021-01-08] MEDS: DOCUSATE SODIUM 100 MG CAPSULE PO SCH ×2 (08:17→20:36)
[2021-01-08] MEDS: MULTIVIT,THER IRON,CA,FA & MIN 1 TABLET PO SCH (08:17)
[2021-01-08] MEDS: LEVOTHYROXINE 125 MCG TABLET PO SCH (08:17)
[2021-01-08] MEDS: levETIRAcetam 1,000 MG in 0.9 % SODIUM CHLORIDE 100 ML IV SCH ×2 (08:58→20:36)
[2021-01-08] MEDS: 0.9 % SODIUM CHLORIDE 250 ML IV SCH (09:05)
[2021-01-08] MEDS ORDERED: TAMSULOSIN 0.4 MG CAPSULE PO ONE (11:41)
--- NOTE | 2021-01-08 11:41 | Internal Med Progress Note ---
SUBJECTIVE Subjective Patient information: Note initiated : 01/08/21 at 11:37 am Service Date, if different from initiated Date: [] Patient: Sander Mcintosh a 70 y/o M admitted on 01/03/21 for Stroke Symptoms Sunday. Chief Complaint: [] Interval history: Mr. Mcintosh is a 70 year old M with history of hypertension/hypothyroidism who lives fairly independently. Patient is neighbor and friend Mackenzie found him in a state of days this morning. She subsequently called her son who is an EMT and recommended take him to the ER for evaluation for concerns of stroke symptom Initial work-up in the ER was unremarkable with a negative biochemical prof ile/CT head. Neurology was consulted and recommend MRI which is unremarkable for acute infarction, CT angiogram head neck negative for acute thrombosis. Hospital service was consulted for further evaluation due to persistent change in mental status. At the time of my evaluation patient is accompanied with friend Mackenzie. He was noted to answer any question and appears very confused. He is disoriented to time place and person. Most of the history was obtained from neighbor and ER physician. There however does not appear an asymmetric weakness or facial droop on initial exam. Telemetry monitoring shows sinus tachycardia with systolics 190. 01/04-patient experienced generalized tonic-clonic seizure last evening. Status post Keppra load and 500 Keppra twice daily. Doing well. Remains encephalopathic. Case discussed with anesthesia Dr. Galaviz. Will undergo lumbar puncture today. Hemoglobin 15.8 white count normal, phosphorus 2, UA unremarkable, calcium 10.1. Afebrile 01/05 patient remains encephalopathic.-On Keppra twice daily. No further seizure activity. However very confused. Agitation requiring antipsychotics, start Precedex drip, stable labs, urine drug screen pending, sodium 138 potassium 3.5 calcium 10, CSF studies 0 nucleated cell with normal protein and glucose. Continue monitoring. 01/06 patient clinically improving. More lucid alert and respond to commands. Oriented to time in place. Precedex weaned off. Continuing Keppra IV. No overnight seizures, stable hemodynamics, no telemetry events. Neuroimaging and labs unremarkable. Continue dietary intervention/therapies as tolerated. 01/07-patient experienced seizure last night. Keppra dose increased to 750 twice daily. More lucid alert and conversant. Able to ambulate. Ongoing therapies. Tolerating diet. Continue uptitrating Keppra to effect. Continue telemetry monitoring. Blood pressure systolics in excess of 180. Added amlodipine/increased dose of metoprolol twice daily along with losartan 25. Case discussed with Dr. Basilio neurologist at [facility]. No beds available or EEG machines at this time at [place]. Neurologist recommended increasing dose of Keppra to 1000 twice daily IV along with close monitoring for seizures, signs of subclinical seizure with eye bobbing and use of Ativan 2 mg to 8 mg to control breakthrough seizures. Patient will be placed on wait list at [place] and transfer center will contact once bed available for transfer. Plan for now -Keppra 1000 mg IV twice daily -Continue neurochecks and seizure watch -Ativan 2 mg to 4 as needed for breakthrough seizures 01/08-patient complained of difficulty urination and Shah's catheter placed resulting in 1000 cc urine output secondary to bladder outlet obstruction. Feeling better however remains confused. On Keppra thousand twice daily along with neurochecks. Await placement at [place] pending bed availability. Intermittently confused overnight requiring one-to-one sitter and monitoring. Stable labs and hemodynamics, HSV PCR CSF negative. No breakthrough seizures no jeferson since 24 hours Constitutional Vitals: Vital Signs Temp Pulse Resp BP Pulse Ox 98.9 F 74 16 159/99 93 01/08/21 08:01 01/05/21 00:36 01/07/21 16:02 01/08/21 10:09 01/08/21 10:09 Period Temp Pulse Resp BP Sys/Rodriguez Pulse Ox Last 24 Hr 97.8 F-99.7 F 16-20 107-204/59-136 90-96 Intake and Output 01/07/21 01/08/21 01/08/21 21:59 05:59 13:59 Intake Total 1655 1250 160 Output Total 1 1727 Balance 1654 -477 160 Weight 95.39 kg Alert but confused Nonlabored breathing 2 telemetry events No further seizure episodes Intake & Output: Intake & Output 01/07/21 01/08/21 01/08/21 21:59 05:59 13:59 Intake Total 1655 1250 160 Output Total 1 1727 Balance 1654 -477 160 Weight 95.39 kg Intake: IV 1215 1000 160 Sodium Chloride 0.9% 1,000 ml @ 1000 1000 100 mls/hr IV .Q10H MIGDALIA Rx#: [id number] Rocephin 2 gm In Dextrose 5% in 50 Water 50 ml @ 100 mls/hr IV Q24H MIGDALIA Rx#:[id number] Keppra 1,000 mg In Sodium 215 110 Chloride 0.9% 100 ml @ 200 mls/ hr IV Q12 MIGDALIA Rx#:[id number] Oral 440 250 Output: Urine Catheter Amount 1725 # of times incontinent of urine 1 2 Other: Meal Dinner Breakfast Percent of Meal Consumed 50% Refused Feeding Ability Total Assistance Urine Appearance Clear Uretheral (Shah) Clear Clear Urine Color Dark Yellow Uretheral (Shah) Dark Yellow Bright Yellow Urine Odor Normal Uretheral (Shah) Strong # Voids 1 OBJ DATA Labs CBC & Chem 7: 01/08/21 04:57 01/08/21 04:57 Labs: Abnormal Lab Results 01/08/21 01/08/21 01/07/21 04:57 04:57 05:45 RBC 4.42 L MCV MPV 10.6 H Lymph % (Auto) 13.1 L Lymph # (Auto) 1.01 L Chloride 109 H 110 H Carbon Dioxide 21 L Lactate Dehydrogenase 237 H 235 H Total Protein 5.7 L U Marijuana (THC) Screen 01/07/21 01/06/21 01/06/21 05:45 05:39 05:39 RBC MCV 100.4 H MPV 10.6 H 10.8 H Lymph % (Auto) Lymph # (Auto) 1.22 L 1.10 L Chloride 111 H Carbon Dioxide 21 L Lactate Dehydrogenase Total Protein 5.7 L U Marijuana (THC) Screen 01/05/21 10:38 RBC MCV MPV Lymph % (Auto) Lymph # (Auto) Chloride Carbon Dioxide Lactate Dehydrogenase Total Protein U Marijuana (THC) Screen Suspect positive A Meds: Medications Acetaminophen (Acetaminophen 325 Mg Tablet) 650 mg PO Q4-6HP PRN; Protocol PRN Reason: Per Pain Protocol/Fever > 101 Last Admin: 01/06/21 08:14 Dose: 650 mg Documented by: Bisacodyl (Bisacodyl 10 Mg Supp.Rect) 10 mg OH Q2-3DAYS PRN PRN Reason: Constipation Clonidine HCl (Clonidine Hcl 0.1 Mg Tablet) 0.1 mg PO Q6-8HP PRN PRN Reason: Agitation Last Admin: 01/07/21 18:36 Dose: 0.1 mg Documented by: Docusate Sodium (Docusate Sodium 100 Mg Capsule) 100 mg PO BID [facility] Last Admin: 01/08/21 08:17 Dose: 100 mg Documented by: Heparin Sodium (Porcine) (Heparin 5,000 Unit/Ml Vial) 5,000 unit SQ Q12 MIGDALIA Last Admin: 01/08/21 08:16 Dose: 5,000 unit Documented by: Hydralazine HCl (Hydralazine 20 Mg/Ml Vial) 10 mg IV Q4-6HP PRN PRN Reason: Hypertension Last Admin: 01/07/21 22:32 Dose: 10 mg Documented by: Potassium Chloride 40 meq/ (Dextrose) 520 mls @ 130 mls/hr IV UD PRN PRN Reason: K+ = or < 3.5 Last Infusion: 01/04/21 00:13 Dose: Infused Documented by: Magnesium Sulfate (Magnesium Sulfate) 2 gm in 50 mls @ 50 mls/hr IV UD PRN PRN Reason: MG = or < 1.7 Acetaminophen (Ofirmev) 650 mg in 65 mls @ 130 mls/hr IV Q6HP PRN; Protocol PRN Reason: Per Pain Protocol/Fever > 101 Last Infusion: 01/05/21 10:08 Dose: Infused Documented by: Sodium Chloride (Sodium Chloride 0.9%) 1,000 mls @ 100 mls/hr IV .Q10H [facility] Last Admin: 01/08/21 08:12 Dose: Not Given Documented by: Ceftriaxone Sodium 2 gm/ (Dextrose) 50 mls @ 100 mls/hr IV Q24H [facility]; Protocol Last Infusion: 01/08/21 08:56 Dose: Infused Documented by: Sodium Chloride (Sodium Chloride 0.9%) 250 mls @ 20 mls/hr IV .[id number] [facility] Last Admin: 01/08/21 09:05 Dose: Not Given Documented by: Levetiracetam 1,000 mg/ Sodium (Chloride) 110 mls @ 200 mls/hr IV Q12 [facility] Last Infusion: 01/08/21 09:45 Dose: Infused Documented by: Iron Carb/Multivit/Screener And Blender Operator/Folic Acid (Multivit,Ther Iron,Ca,Fa & Min 1 Tablet) 1 tab PO DAILY [facility] Last Admin: 01/08/21 08:17 Dose: 1 tab Documented by: Levothyroxine Sodium (Levothyroxine 125 Mcg Tablet) 125 mcg PO ACB [facility] Last Admin: 01/08/21 08:17 Dose: 125 mcg Documented by: Lorazepam (Lorazepam 2 Mg/Ml Vial) 2 mg IV Q4HP PRN PRN Reason: Agitation Last Admin: 01/07/21 23:40 Dose: 2 mg Documented by: Losartan Potassium (Losartan 25 Mg Tablet) 25 mg PO DAILY [facility] Last Admin: 01/08/21 08:17 Dose: 25 mg Documented by: Melatonin (Melatonin 3 Mg Tablet) 3 mg PO HSP PRN PRN Reason: Insomnia Last Admin: 01/07/21 22:49 Dose: 3 mg Documented by: Metoprolol Tartrate (Metoprolol Tartrate 5 Mg/5 Ml Vial) 5 mg IV Q5M PRN PRN Reason: Heart Rate > 140 bpm Metoprolol Tartrate (Metoprolol Tartrate 25 Mg Tablet) 25 mg PO BID [facility] Last Admin: 01/08/21 08:16 Dose: 25 mg Documented by: Ondansetron HCl (Ondansetron 4 Mg Odt Tablet) 4 mg SL Q4-6HP PRN; Protocol PRN Reason: Nausea And Vomiting Last Admin: 01/04/21 09:09 Dose: 4 mg Documented by: Ondansetron HCl (Ondansetron 4 Mg/2 Ml Vial) 4 mg IV Q4-6HP PRN; Protocol PRN Reason: Nausea And Vomiting Polyethylene Glycol (Polyethylene Glycol 3350 17 Gm Packet) 17 gm PO DAILYP PRN PRN Reason: Constipation Potassium Chloride (Potassium Chloride 20 Meq Tablet) 40 meq PO UD PRN PRN Reason: hypokalemia Last Admin: 01/07/21 12:08 Dose: 40 meq Documented by: Potassium/Phosphorus/Sodium (Neutra Phos 1 Packet) 2 packet PO DAILY PRN PRN Reason: PHOS <2.5 Last Admin: 01/05/21 09:16 Dose: 2 packet Documented by: Senna/Docusate Sodium (Sennosides/Docusate Sodium 1 Tab Tablet) 1 tab PO HS [facility] Last Admin: 01/07/21 20:43 Dose: 1 tab Documented by: Sodium Chloride (0.9 % Sodium Chloride 10 Ml Syringe) 10 ml IV Q8 [facility] Last Admin: 01/08/21 05:44 Dose: 10 ml Documented by: A/P Narrative A/P Narrative: * Acute change in mental status-secondary to seizures. Negative CSF studies. Negative neuroimaging/urine drug screen/biochemical profile. Continue thiamine, off Precedex drip. * New onset generalized tonic-clonic seizure with breakthrough seizure-now on Keppra 1000 twice daily per neurology. Neurology recommends continuous EEG monitoring and transfer however no beds available at [place] at this time. Patient on wait list for transfer * Urinary retention status post Shah's catheter placement * Suboptimally controlled hypertension-continue increased dose of beta-lauri and TRAVON inhibitor. * Hypercalcemia secondary to volume depletion -resolved with crystalloids * History of hypothyroid continue thyroxine * Minimal elevation of bilirubin without right upper quadrant tenderness. Normalized * Prophylaxis Heparin(held for LP) Plan * Continue Keppra * Increased dose TRAVON inhibitor/beta-lauri * Shah's catheter * Start Flomax * Nutrition support/PT OT * discharge planning Time Spent With Patient Time: Total time spent is greater than 50% in coordination of care (as documented) at patient's floor/unit and/or counseling patient: QUALITY Stroke Onset of Symptoms Date: 01/01/21 Symptom Onset Unknown: Yes VTE Deep Vein Thrombosis/Pulmonary Embolism Present on Admission: No
[2021-01-08] MEDS ORDERED: LOSARTAN 25 MG TABLET PO ONE (11:42)
[2021-01-08] MEDS ORDERED: LOSARTAN 25 MG TABLET PO SCH (11:45)
[2021-01-08] MEDS: hydrALAZINE 20 MG/ML VIAL IV PRN ×2 (15:59→18:22)
[2021-01-08] MEDS: SENNOSIDES/DOCUSATE SODIUM 1 TAB TABLET PO SCH (20:36)
[2021-01-08] MEDS ORDERED: TAMSULOSIN 0.4 MG CAPSULE PO SCH (21:00)
[2021-01-08] MEDS: LORazepam 2 MG/ML VIAL IV PRN (22:12)
--- NOTE | 2021-01-08 22:17 | Transfer Summary ---
Discharge Provider Provider Patient information: Note initiated : 01/08/21 at 10:17 pm Service Date, if different from initiated Date: [] Patient: Sander Mcintosh a 70 y/o M admitted on 01/03/21 for Stroke Symptoms Sunday. TRANSFER DIAGNOSIS * Acute change in mental status-secondary to seizures. Negative CSF studies. Negative neuroimaging/urine drug screen/biochemical profile. Continue thiamine. No E/o ETOH Abuse * New onset generalized tonic-clonic seizure with breakthrough seizure X 2 (latest 01/08 10:20 PM) -now on Keppra 1000 twice daily per neurology. Neurology recommends continuous EEG monitoring and transfer however no beds available at [place] at this time. Patient on wait list for transfer * Urinary retention status post Shah's catheter placement. * Suboptimally controlled hypertension-continue increased dose of beta-lauri and ARB. * Hypercalcemia secondary to volume depletion -resolved with crystalloids * History of hypothyroid continue thyroxine * Minimal elevation of bilirubin without right upper quadrant tenderness. Normalized BRIEF HOSPITAL COURSE Mr. Mcintosh is a 70 year old M with history of hypertension/hypothyroidism who lives fairly independently. Patient is neighbor and friend Mackenzie found him in a state of days this morning. She subsequently called her son who is an EMT and recommended take him to the ER for evaluation for concerns of stroke symptom Initial work-up in the ER was unremarkable with a negative biochemical profile/CT head. Neurology was consulted and recommend MRI which is unremarkable for acute infarction, CT angiogram head neck negative for acute thrombosis. Hospital service was consulted for further evaluation due to persistent change in mental status. At the time of my evaluation patient is accompanied with friend Mackenzie. He was noted to answer any question and appears very confused. He is disoriented to time place and person. Most of the history was obtained from neighbor and ER physician. There however does not appear an asymmetric weakness or facial droop on initial exam. Telemetry monitoring shows sinus tachycardia with systolics 190. 5/4-patient experienced generalized tonic-clonic seizure last evening. Status post Keppra load and 500 Keppra twice daily. Doing well. Remains encephalopathic. Case discussed with anesthesia Dr. Galaviz. Will undergo lumbar puncture today. Hemoglobin 15.8 white count normal, phosphorus 2, UA unremarkable, calcium 10.1. Afebrile 5/5 patient remains encephalopathic.-On Keppra twice daily. No further seizure activity. However very confused. Agitation requiring antipsychotics, start Precedex drip, stable labs, urine drug screen pending, sodium 138 potassium 3.5 calcium 10, CSF studies 0 nucleated cell with normal protein and glucose. Continue monitoring. 01/06 patient clinically improving. More lucid alert and respond to commands. Oriented to time in place. Precedex weaned off. Continuing Keppra IV. No overnight seizures, stable hemodynamics, no telemetry events. Neuroimaging and labs unremarkable. Continue dietary intervention/therapies as tolerated. 01/07-patient experienced seizure last night. Keppra dose increased to 750 twice daily. More lucid alert and conversant. Able to ambulate. Ongoing therapies. Tolerating diet. Continue uptitrating Keppra to effect. Continue telemetry monitoring. Blood pressure systolics in excess of 180. Added amlodipine/increased dose of metoprolol twice daily along with losartan 25. Case discussed with Dr. Basilio neurologist at [facility]. No beds available or EEG machines at this time at [place]. Neurologist recommended increasing dose of Keppra to 1000 twice daily IV along with close monitoring for seizures, signs of subclinical seizure with eye bobbing and use of Ativan 2 mg to 8 mg to control breakthrough seizures. Patient will be placed on wait list at [place] and transfer center will contact once bed available for transfer. Plan for now -Keppra 1000 mg IV twice daily -Continue neurochecks and seizure watch -Ativan 2 mg to 4 as needed for breakthrough seizures 01/08-patient complained of difficulty urination and Shah's catheter placed resulting in 1000 cc urine output secondary to bladder outlet obstruction. Feeling better however remains confused. On Keppra thousand twice daily along with neurochecks. Await placement at [place] pending bed availability. Intermittently confused overnight requiring one-to-one sitter and monitoring. Stable labs and hemodynamics, HSV PCR CSF negative. No breakthrough seizures noted since 24 hours Patient remains encephalopathic. No bed available at [place]. Case discussed with [facility] neurologist. Again no beds available for 24 hours. Neurologist recommended trial of 1 mg Ativan to assess if change in mental status improves which will indicate a subclinical seizure. Continue existing treatment on Keppra/as needed Ativan 10.20- Patient experience another seizure lasting < 5 minutes, responded to Ativan IV 2 mg. Stable hemodynamics and protecting airway. CAll recd from [facility] about bed availability and transferring patient. House coordinatoer to arrange Air ambulance Date of admission: 01/03/21 17:06 Discharge date: 01/08/21 Primary care physician: Chiara Bateman Consults: 01/03/21 15:30 Consult to Physician [CONS] Stat Comment: Consulting Provider: Marcos Roque Reason For Exam: Physician to Consult 01/04/21 10:12 Consult to Physician [CONS] Routine Comment: LP consult Consulting Provider: Brook Galaviz Reason For Exam: Physician to Consult Discharge Meds Discharge Medications Home Medications levothyroxine 125 mcg PO DAILY 01/02/19 [History Confirmed 01/03/21 Last Taken Unknown] losartan 25 mg PO DAILY 01/03/21 [History Confirmed 01/03/21 Last Taken Unknown] COURSE Hospital Course Hospital course: . Discharge diagnosis: . Time Spent with Patient Time attestation: Total time spent providing and/or coordinating discharge services: EXAM Constitutional Vitals: Temp Pulse Resp BP Pulse Ox 99.4 F H 74 20 171/106 91 01/08/21 19:01 01/05/21 00:36 01/08/21 12:01 01/08/21 20:01 01/08/21 20:01 Discharge Data Data Completed and Pending Labs on day of discharge: Labs from last 24 hours 01/08/21 01/08/21 01/04/21 04:57 04:57 15:00 WBC 7.7 RBC 4.42 L Hgb 14.6 Hct 43.7 MCV 98.9 MCH 33.0 MCHC 33.4 RDW 13.2 Plt Count 243 MPV 10.6 H Neut % (Auto) 75.1 Lymph % (Auto) 13.1 L Petroleum % (Auto) 9.6 Eos % (Auto) 1.3 Baso % (Auto) 0.9 Lymph # (Auto) 1.01 L Petroleum # (Auto) 0.74 Eos # (Auto) 0.10 Baso # (Auto) 0.07 Absolute Neutrophils 5.78 Sodium 141 Potassium 3.6 Chloride 109 H Carbon Dioxide 22 Anion Gap 10.0 BUN 9 Creatinine 0.9 GFR Calculation 85 Glucose 92 Uric Acid 6.1 Calcium 9.8 Phosphorus 2.7 Magnesium 1.8 Total Bilirubin 0.5 Direct Bilirubin < 0.2 GGT 19 AST 17 ALT 13 Alkaline Phosphatase 71 Lactate Dehydrogenase 237 H Total Protein 5.7 L Albumin 3.3 Globulin 2.4 Albumin/Globulin Ratio 1.4 Triglycerides 118 Herpes Simplex Source Cerebrospinal fluid HSV I DNA PCR Not detected HSV II DNA PCR Not detected Discharge Plan Patient/Caregiver Discharge Instructions Activity: other Diet: NPO Prescriptions: No Action levothyroxine 125 MCG tablet 125 mcg PO DAILY RF: 0 losartan 25 mg tablet 25 mg PO DAILY RF: 0 Follow Up Plan Follow up with: Chiara Bateman ARNP [Primary Care Provider] - Patient Disposition: [facility] Prognosis: Fair Rehab Potential: Serious I certify that the patient requires SNF services: No Overall status at discharge: patient is not back to baseline Discharge Orders: Discharge Order (Routine); Ordered 01/08/21 Ordered By: Marcos MUÑOZ VTE Deep Vein Thrombosis/Pulmonary Embolism Present on Admission: No
[2021-01-09] MEDS ORDERED: LOSARTAN 25 MG TABLET PO SCH (09:00)
[2021-01-11 15:31] LABS: HSV 1 IGG Index CSF 0.12; HSV 1 IGM Screen CSF NEGATIVE; HSV 2 IBM Screen CSF NEGATIVE; HSV 2 IGG Index CSF 0.05; LCM IGG <1:1; LCM IGM <1:1; Measles IGG AB CSF <1:64; Measles IGM AB CSF <1:1; VZV IGM (IFA) <1:1 titer; VZV Total AB (ACIF) <1:2 titer; WNV IGG Screen <1.30 index; WNV IGM Screen <0.90 index
[2021-01-21 09:44] LABS: Cannabinoid Confirmation Positive
== END 2021-01-08 23:05 | disposition short-term general hospital (02) | DRG 101 ==
LOC: ED 08:12 → ICU 08:12 → OBSVTOIN 17:06
PROVIDERS: ADMIT Internal Medicine; ATTEND Internal Medicine

== ENCOUNTER 2022-04-20 06:39 | Observation (INO) ==
[2022-04-11 15:47] LABS: Basophils # (Auto) 0.12 K/mcL (0.00-0.30); Basophils % (Auto) 1.5 % (0.0-2.0); Eosinophils # (Auto) 0.13 K/mcL (0.00-0.70); Eosinophils % (Auto) 1.7 % (0.0-7.0); Lymphocytes # (Auto) 1.75 K/mcL (1.50-4.80); Lymphocytes % (Auto) 22.5 % (15.5-49.0); Mean Cell Volume 97.2 fL (80.0-100.0); Mean Corpuscular HGB Conc 32.7 g/dL (31.0-36.0); Mean Platelet Volume 10.6 fL (7.4-10.4); Monocytes # (Auto) 0.72 K/mcL (0.10-0.90); Monocytes % (Auto) 9.3 % (1.0-12.0); Platelet Count 207 K/mcL (140-440); RBC 5.04 M/mcL (4.63-6.08); WBC 7.8 K/mcL (4.5-11.0)
[2022-04-11 16:41] LABS: Blood Urea Nitrogen 20 mg/dL (8-23); Calcium 10.5 mg/dL (8.6-10.4); Carbon Dioxide 24 mmol/L (22-30); Chloride 102 mmol/L (96-108); Glomerular Filtration Rate 74; Glucose 104 mg/dL (70-105)
--- NOTE | 2022-04-18 14:20 | EKG ---
[facility] Test Date: 2022-04-11 Pat Name: Sander Mcintosh Department: [facility] Room: Gender: Male Service Team Leader: : 1950 Requested By: Frandy Lora Order Number: [id number] Reading MD: Gomez Anderson M.D. Measurements Intervals [place] Rate: 74 P: 21 WA: 173 QRS: -63 QRSD: 141 T: 4 QT: 391 QTc: 434 Interpretive Statements Sinus rhythm RBBB and LAFB Electronically Signed On 04-18-2022 14:19:46 PDT by Gomez Anderson M.D. /store/M0/[id number]
[~2022-04-20 06:39] MED LIST: LEVOFLOXACIN 500 MG/100 ML BAG IV SCH
[2022-04-20] MEDS ORDERED: GLYCOPYRROLATE 0.2 MG/ML VIAL IV ONE (09:03)
[2022-04-20] MEDS ORDERED: fentaNYL 100 MCG/2 ML VIAL IV ONE (09:03)
[2022-04-20] MEDS ORDERED: ONDANSETRON 4 MG/2 ML VIAL ONE (09:03)
[2022-04-20] MEDS ORDERED: MIDAZOLAM 5 MG/5 ML VIAL ONE (09:03)
[2022-04-20] MEDS ORDERED: DEXAMETHASONE 10 MG/ML VIAL ONE (09:03)
[2022-04-20] MEDS ORDERED: LIDOCAINE HCL/PF 100 MG/5 ML SYRINGE IV ONE (09:03)
[2022-04-20] MEDS ORDERED: PROPOFOL 200 MG/20 ML VIAL IV ONE (09:03)
[2022-04-20] MEDS ORDERED: IOVERSOL 20 ML VIAL IJ ONE (09:20)
[2022-04-20] MEDS ORDERED: ONDANSETRON 4 MG/2 ML VIAL IV PRN ×2 (09:23→10:23)
[2022-04-20] MEDS ORDERED: NALOXONE HCL 0.4 MG/ML VIAL IV PRN (09:23)
[2022-04-20] MEDS ORDERED: METOPROLOL TARTRATE 5 MG/5 ML VIAL IV PRN (09:23)
[2022-04-20] MEDS ORDERED: fentaNYL 100 MCG/2 ML VIAL IV PRN (09:23)
[2022-04-20] MEDS ORDERED: KETOROLAC 30 MG/ML VIAL IV PRN (09:23)
[2022-04-20] MEDS ORDERED: ACETAMINOPHEN 1,000 MG/100 ML BAG IV ONE (09:23)
[2022-04-20] MEDS ORDERED: LABETALOL 5 MG/ML ML IV PRN (09:23)
[2022-04-20] MEDS ORDERED: IPRATROPIUM/ALBUTEROL 3 ML AMPUL.NEB NEB PRN (09:23)
[2022-04-20] MEDS ORDERED: PROMETHAZINE 25 MG/ML VIAL IV PRN (09:23)
[2022-04-20] MEDS ORDERED: LACTATED RINGERS 250 ML IV PRN (09:23)
[2022-04-20] MEDS ORDERED: HYDROmorphone 0.5 MG/0.5 ML SYRINGE IV PRN (09:23)
[2022-04-20] MEDS ORDERED: MEPERIDINE 25 MG/ML VIAL IV PRN (09:23)
[2022-04-20] MEDS ORDERED: LACTATED RINGERS 1,000 ML IV SCH (09:30)
[2022-04-20] MEDS ORDERED: LIDOCAINE 2% URO-JET 10 ML JEL.PF.APP UR ONE (09:32)
[2022-04-20] MEDS ORDERED: MAG HYDROX/AL HYDROX/SIMETH 30 ML ORAL.SUSP PO PRN (10:23)
[2022-04-20] MEDS ORDERED: MAGNESIUM HYDROXIDE 30 ML ORAL.SUSP PO PRN (10:23)
[2022-04-20] MEDS ORDERED: BISACODYL 10 MG SUPP.RECT PR PRN (10:23)
--- NOTE | 2022-04-20 10:23 | Operative Note ---
Brief Operative Note Date of procedure: 04/20/22 Pre-op diagnosis: Left distal ureteral stone or bladder stone, large prostate Post-op diagnosis: other (1.5 cm bladder stone and large prostate) Procedure: Cystoscopy, left retrograde pyelogram, cystoscopy with colopexy, limited transurethral resection of the prostate. Grafts/Implants: Yes (24 Syrian three-way Shah catheter with 30 mL in balloon) Anesthesia: GLMA Findings: 1.5 cm bladder stone. No evidence of left ureteral stone. Limited transurethral resection of the prostate performed in order to evacuate stone. Complications: none Surgeon: Aries Sanchez Estimated blood loss (cc): 75 Specimens Removed/Pathology: other (Bladder stone for stone analysis and prostate tissue for pathologic examination.) Condition: stable Disposition: PACU Operative Note Operative Note: After obtaining informed consent for the patient, he was brought to the operating room was placed supine on the operating table. General anesthesia was provided. He was repositioned in a dorsolithotomy position was prepped and draped in usual sterile fashion. Attention was directed to the urethral meatus where a 21 Syrian cystoscope was passed per urethra into the bladder with difficulty due to an extremely large prostate with a large obstructive median lobe and an elevated bladder neck. The left ureteral orifice was identified and a 0.3 Syrian sensor wire was passed through the left ureteral orifice and under fluoroscopic guidance into the left upper pole. There was no resistance consistent with the stone. I examined the bladder with difficulty and found a stone under the lip of prostate. It was approxione 0.5 cm in diameter. The cystoscope was removed and a dual-lumen catheter was passed over the wire and a left retrograde pyelogram was performed that showed no evidence of ureteral stone or obstruction. The wire was then removed. Attention was directed to the bladder stone which was visualized with difficulty due to the obstructive prostate. Using a 550 m laser fiber at bladder fragmentation settings the stone was fragmented into smaller pieces which then became stuck under the large median lobe. In order to evacuate the fragments a limited transurethral resection of the prostate was necessary. I therefore filled the bladder and remove the cystoscope. I placed a 28 Syrian continuous-flow resectoscope sheath per urethra into the bladder with obturator. The obturator is removed and the bipolar resectoscope element was placed. I resected the median lobe until I could identify the stone fragments and evacuate them. Hemostasis was then obtained using coagulation current until there was no bleeding seen. The bladder was then irrigated and drained. Once all prostate chips and bladder stones removed from the bladder the bladder was refilled and the resectoscope was removed. Lidocaine jelly was placed in the urethra and the bladder. A 24 Syrian three-way Shah catheter was easily passed per urethra and into the bladder. The balloon was inflated with 30 mL of sterile water. It was hand irrigated. The irrigation ran clear to clear pink. Continuous bladder irriga tion was started. The stones and the prostate tissue were collected the specimens for pathologic examination. Stone tissue was and sent separately. Stones were sent for analysis. The patient was then returned to the supine position. He was awakened returned to the recovery in stable condition. A decision was made to keep the patient overnight with continuous bladder irrigation for observation.
--- NOTE | 2022-04-20 10:34 | XRay Report ---
INDICATION: RETROGRADE PYELOGRAM TECHNIQUE: Intraoperative fluoroscopy and spot films utilized by Dr. Sanchez. 0.4 minutes fluoroscopy and 8.57 mGy exposure used. Left ureteral stent was placed IMPRESSION: Intraoperative fluoroscopy and spot films Interpreted and Authenticated by: Gomez Leal 04/20/22
[2022-04-20] MEDS: HYDROcodone/APAP 5/325MG TABLET PO PRN (12:10)
[2022-04-20] MEDS: 0.9 % SODIUM CHLORIDE 10 ML SYRINGE IV SCH ×2 (16:29→21:54)
[2022-04-20] MEDS: DEXTROSE 5%-1/2NS W/20MEQ KCL 1,000 ML IV SCH (16:45)
[2022-04-21] MEDS: DEXTROSE 5%-1/2NS W/20MEQ KCL 1,000 ML IV SCH ×4 (04:44→18:53)
[2022-04-21] MEDS: HYDROmorphone 1 MG/ML SYRINGE IV PRN ×3 (06:16→22:08)
[2022-04-21] MEDS: 0.9 % SODIUM CHLORIDE 10 ML SYRINGE IV SCH ×3 (06:18→22:10)
[2022-04-21] MEDS: LEVOTHYROXINE 125 MCG TABLET PO SCH (07:15)
--- NOTE | 2022-04-21 07:37 | Urology Progress Note ---
SUBJECTIVE Subjective Patient information: Note initiated : 04/21/22 at 7:33 am Service Date, if different from initiated Date: [] Patient: Sander Mcintosh 71 y/o M admitted on for Cystoscopy with Left Retrograde Pyelograms, Left. Chief Complaint:Sander is a 71-year-old male who was admitted for a left distal ureteral stone. On cystoscopy the stone was seen to be within the bladder. The prostate was also large and obstructive and required a limited transurethral resection of the prostate to remove the stone fragments. We performed cystolitholapaxy and limited transurethral resection of the prostate. The patient was kept overnight for observation with continuous bladder irrigation running. The irrigation was stopped at 3 AM. Urine has remained clear to clear light pink. A voiding trial was performed this morning. Principal diagnosis: Bladder stone and BPH Interval history: The patient has done well overnight. Continuous bladder irrigation was stopped. The patient had complaints of bladder spasm this morning which will likely improve without the Shah catheter in place. Constitutional Vitals: Vital Signs Temp Pulse Resp BP Pulse Ox O2 Del Method O2 Flow Rate 97.3 F 58 L 20 130/84 93 6 04/21/22 07:29 04/21/22 07:29 04/21/22 07:29 04/21/22 07:29 04/21/22 07:29 04/21/22 07:29 04/20/22 10:30 Period Temp Pulse Resp BP Sys/Rodriguez Pulse Ox O2 Del Method O2 Flow Rate Last 24 Hr 96.3 F-98.5 F 58-90 11-24 101-167/65-93 91-100 Room Air-Room Air 6 Intake and Output 04/20/22 04/21/22 04/21/22 21:59 05:59 13:59 Intake Total 90625 3812 104 Output Total 9500 4250 475 Balance 624 -437 -139 Intake & Output: Intake & Output 04/20/22 04/21/22 04/21/22 21:59 05:59 13:59 Intake Total 33826 3812 104 Output Total 9500 4250 475 Balance 659 -211 -251 Intake: IV 512 104 Dextrose 5%-1/2Ns W/20Meq KCl 1 512 104 ,000 ml @ 75 mls/hr IV .[id number] [facility] Rx#:[id number] Oral 680 300 IV - Manual Only 800 CBI Fluid 9000 3000 Output: Urine Catheter Amount 475 CBI Fluid 9500 4250 Other: Meal Dinner Percent of Meal Consumed 100% Feeding Ability Independent Urine Appearance Clear Clear Clear 3-way Urethral Clear Clear Urine Color [place] Yellow Yellow Pale 3-way Urethral Pale Yellow [place] Pale [place] Urine Odor Normal Normal Net CBI 500 1250 General appearance: average body habitus and no acute distress Respiratory Respiratory exam: Present normal respiratory exam Cardiovascular Cardiovascular exam: Present normal rate and rhythm Expanded Exam Urine Appearance: Clear Urine Color: [place] A/P Assessment and plan (1) Bladder stone: Status: Acute (2) BPH loc w urin obs/LUTS: Status: Acute Narrative A/P Narrative: Sander is a 71-year-old male who was thought to have a left distal ureteral stone. On cystoscopy yesterday the stone was seen to be within the bladder. The patient also has significant BPH making evaluation the stone and possible without removing a small portion of the prostate. He had a large obstructive median lobe. He underwent limited transurethral resection of the prostate and cystolitholapaxy. Continuous bladder irrigation was run overnight and was stopped at 3 AM. Urine has remained clear to clear light pink. A voiding trial was performed in the office this morning. Assuming the patient is able to urinate over 3 consecutive urinations without any increasing residual we will send him home without the catheter. Should he be unable to urinate we will replace the catheter and send him home with an antibiotic and pain medication. Time Spent With Patient Time: Total time spent is greater than 50% in coordination of care (as documented) at patient's floor/unit and/or counseling patient: Total time spent with greater than 50% in coordination of care (as documented) at patient's floor/unit and/or counseling patient:: less than 15 minutes Critical Care Time: No
[2022-04-21] MEDS: DOCUSATE SODIUM 100 MG CAPSULE PO SCH (09:29)
[2022-04-21] MEDS: LOSARTAN 25 MG TABLET PO SCH (09:29)
--- NOTE | 2022-04-21 15:05 | Discharge Plan ---
Discharge Plan Patient/Caregiver Discharge Instructions Activity: increase activity as tolerated Diet: Regular Diet Prescriptions: New levofloxacin 500 mg tablet 500 mg PO Q24H Qty: 7 0RF hydrocodone-acetaminophen 5-325 mg tablet 1 tab PO Q6H PRN (Reason: pain) Qty: 8 0RF Continued docusate sodium [Colace] 100 mg capsule 100 mg PO QDAY levothyroxine 125 mcg tablet 100 mcg PO QAM losartan 25 mg tablet 25 mg PO DAILY Follow Up Plan Follow up with: Aries Sanchez MD [Physician] - 04/25/22 10:30 am Patient Disposition: Home, Self-Care Plan of Treatment: D/C Home with Shah, leg bag and night bag. Teach care and use. Discharge Orders: Discharge Order (Routine); Ordered 04/21/22 Ordered By: Aries Sanchez
[2022-04-21] MEDS ORDERED: LIDOCAINE 2% URO-JET 10 ML JEL.PF.APP UR ONE (15:07)
--- NOTE | 2022-04-21 15:43 | Discharge Plan ---
Discharge Plan Patient/Caregiver Discharge Instructions Activity: increase activity as tolerated Diet: Regular Diet Instructions: Hydrocodone/Acetaminophen (By mouth), Levofloxacin (By mouth), Shah Catheter Placement and Care (DC), Urinary Leg Bag (GEN), Bladder Stones (DC), Transurethral Prostatectomy (DC) Activity Restrictions/Additional Instructions: Increase activity as tolerated. May resume regular diet as tolerated. May shower. No soaking in tub/pool/jacuzzi. Empty Shah as needed. To avoid constipation while taking any narcotic medication, take an over the ounter stool softener/laxative. Call your physician for sustained fever greater than 100.5, bleeding, increase in pain not relieved by rest/medication, or any questions/concerns. This discharge packet is provided to you to help keep you informed about your care. We want to ensure you get everything you need when you go home. You will also be receiving a call from us in a few days to follow up with you and see how you are doing since your discharge. This gives us a chance to listen to any concerns you maybe experiencing since you were discharged or any additional needs you may have, as well as providing us feedback on your care experience. We strive to always provide excellent care and thank you for your feedback and for choosing [facility]. Prescriptions: New levofloxacin 500 mg tablet 500 mg PO Q24H Qty: 7 0RF hydrocodone-acetaminophen 5-325 mg tablet 1 tab PO Q6H PRN (Reason: pain) Qty: 8 0RF hydrocodone-acetaminophen 5-325 mg tablet 1 tab PO Q6H PRN (Reason: pain) Qty: 8 0RF Continued docusate sodium [Colace] 100 mg capsule 100 mg PO QDAY levothyroxine 125 mcg tablet 100 mcg PO QAM losartan 25 mg tablet 25 mg PO DAILY Follow Up Plan Follow up with: Aries Sanchez MD [Physician] - 04/25/22 10:30 am Patient Disposition: Home, Self-Care Plan of Treatment: D/C Home with Shah, leg bag and night bag. Teach care and use. Discharge Orders: Discharge Order (Routine); Ordered 04/21/22 Ordered By: Aries Sanchez
[2022-04-21] MEDS ORDERED: TAMSULOSIN 0.4 MG CAPSULE PO ONE (17:49)
[2022-04-21] MEDS ORDERED: TAMSULOSIN 0.4 MG CAPSULE PO SCH (21:00)
[2022-04-21] MEDS: HYDROcodone/APAP 5/325MG TABLET PO PRN (21:37)
[2022-04-22] MEDS: HYDROcodone/APAP 5/325MG TABLET PO PRN (02:39)
[2022-04-22] MEDS: DEXTROSE 5%-1/2NS W/20MEQ KCL 1,000 ML IV SCH (07:36)
[2022-04-22] MEDS: 0.9 % SODIUM CHLORIDE 10 ML SYRINGE IV SCH (07:37)
[2022-04-22] MEDS: DOCUSATE SODIUM 100 MG CAPSULE PO SCH (08:26)
[2022-04-22] MEDS: LOSARTAN 25 MG TABLET PO SCH (08:26)
[2022-04-22] MEDS: LEVOTHYROXINE 125 MCG TABLET PO SCH (08:26)
--- NOTE | 2022-04-22 09:03 | Urology Progress Note ---
SUBJECTIVE Subjective Patient information: Note initiated : 04/22/22 at 9:01 am Service Date, if different from initiated Date: [] Patient: Sander Mcintosh 71 y/o M admitted on 04/21/22 for Cystoscopy with Left Retrograde Pyelograms, Left. Chief Complaint: Bladder stone and BPH Principal diagnosis: Bladder stone and BPH Interval history: Doing much better POD#2. Kept overnight for urinary retention. Shah catheter placed. Constitutional Vitals: Vital Signs Temp Pulse Resp BP Pulse Ox O2 Del Method O2 Flow Rate 97.2 F 80 16 124/79 97 6 04/22/22 07:08 04/22/22 07:08 04/22/22 07:08 04/22/22 07:08 04/22/22 07:08 04/22/22 07:08 04/21/22 15:55 Period Temp Pulse Resp BP Sys/Rodriguez Pulse Ox O2 Del Method O2 Flow Rate Last 24 Hr 97.2 F-98.6 F 65-86 16-20 111-168/74-85 94-97 Room Air-Room Air 6 Intake and Output 04/21/22 04/22/22 04/22/22 21:59 05:59 13:59 Intake Total 1198 300 Output Total 810 1500 Balance 388 -1200 Weight 109.18 kg Intake & Output: Intake & Output 04/21/22 04/22/22 04/22/22 21:59 05:59 13:59 Intake Total 1198 300 Output Total 810 1500 Balance 388 -1200 Weight 109.18 kg Intake: IV 958 Dextrose 5%-1/2Ns W/20Meq KCl 1 958 ,000 ml @ 75 mls/hr IV .[id number] [facility] Rx#:[id number] Oral 240 300 Output: Urine Catheter Amount 600 975 Void Amount 210 525 Other: Meal Lunch Percent of Meal Consumed 100% Feeding Ability Independent Urine Appearance Clear Clear [place] Small Blood Clots Straight Clear [place] Urine Color Bright Red Dark Yellow [place] Straight Dark Yellow [place] Urine Odor Normal # Voids 1 General appearance: average body habitus, cooperative and no acute distress Respiratory Respiratory exam: Present normal respiratory exam Cardiovascular Cardiovascular exam: Present normal rate and rhythm Expanded Exam Urine Appearance: Clear Urine Color: [place] A/P Narrative A/P Narrative: POD#2 s/p Cystolitholapaxy and TURP. Doing well. Failed voiding trial and had no one to help him at home. Stayed overnight. Shah catheter replaced. Will go home with Shah today. Plan of Treatment: D/C Home with Shah, leg bag and night bag. Teach care and use. Time Spent With Patient Time: Total time spent is greater than 50% in coordination of care (as documented) at patient's floor/unit and/or counseling patient: Total time spent with greater than 50% in coordination of care (as documented) at patient's floor/unit and/or counseling patient:: less than 15 minutes
== END 2022-04-22 11:20 | disposition home or self-care (01) ==
LOC: SUR 06:39 → MEDSUR 06:39
PROVIDERS: ADMIT Urology; ATTEND Urology

== ENCOUNTER 2023-04-18 17:58 | Inpatient (IN) ==
[2023-04-18] MEDS ORDERED: 0.9 % SODIUM CHLORIDE 1,000 ML IV ONE ×2 (18:08→18:35)
[2023-04-18 18:27] LABS: POC Calcium, Ionized 1.29 (1.16-1.32); POC Creatinine 3.7 (0.6-1.2); POC Potassium 3.7 (3.3-5.1)
[2023-04-18 18:59] LABS: Basophils # (Auto) 0.05 K/mcL (0.00-0.30); Basophils % (Auto) 0.3 % (0.0-2.0); Eosinophils # (Auto) 0.23 K/mcL (0.00-0.70); Eosinophils % (Auto) 1.4 % (0.0-7.0); Hemoglobin 14.4 g/dL (13.7-17.5); Lymphocytes # (Auto) 1.54 K/mcL (1.50-4.80); Lymphocytes % (Auto) 9.6 % (15.5-49.0); Mean Cell Volume 93.3 fL (80.0-100.0); Mean Corpuscular HGB Conc 33.5 g/dL (31.0-36.0); Mean Platelet Volume 11.8 fL (8.8-12.5); Monocytes # (Auto) 1.98 K/mcL (0.10-0.90); Monocytes % (Auto) 12.3 % (1.0-12.0); Neutrophils % (Auto) 74.3 % (38.0-78.0); Platelet Count 309 K/mcL (140-440); RBC 4.61 M/mcL (4.63-6.08); Red Cell Distribution Width 13.2 % (11.5-14.5); WBC 16.1 K/mcL (4.5-11.0)
[2023-04-18 19:09] LABS: Alcohol,Blood 0.159 gm/dL (<0.010)
[2023-04-18] MEDS ORDERED: cefTRIAXone 1 GM VIAL IV ONE (19:09)
[2023-04-18] MEDS ORDERED: LORazepam 2 MG/ML VIAL IV ONE (20:28)
[2023-04-18] MEDS ORDERED: SODIUM CHLORIDE 0.9% INJ ONE (20:37)
[2023-04-18] MEDS ORDERED: HEPARIN INJ ONE (20:37)
[2023-04-18] MEDS ORDERED: HEPARIN SOD,PORK IN 0.45% NACL 25,000 UNIT in PREMIX 1 BAG IV SCH (20:45)
[2023-04-18] MEDS ORDERED: LACTULOSE 20 GM/30 ML ORAL.SOL PO PRN (22:12)
[2023-04-18] MEDS ORDERED: ONDANSETRON 4 MG/2 ML VIAL IV PRN (22:12)
[2023-04-18] MEDS ORDERED: FLEETS ADULT ENEMA PR PRN (22:12)
[2023-04-18] MEDS ORDERED: POTASSIUM CHLORIDE 20 MEQ, MAGNESIUM SULFATE 16.24 MEQ, THIAMINE 100 MG, MVI, ADULT NO.... IV SCH (22:15)
[2023-04-18 22:33] LABS: Amphetamine Screen,Urine None detected; Barbiturate Screen,Urine None detected; Benzodiazepines Screen,Urine None detected; Cannabinoid Screen,Urine Suspect Positive; Cocaine Screen,Urine None detected; Opiate Screen,Urine None detected; Oxycodone, Urine Screen None detected; Phencyclidine Screen,Urine None detected
[2023-04-18] MEDS: 0.9 % SODIUM CHLORIDE 1,000 ML IV SCH (23:15)
[2023-04-18 23:30] LABS: ALT/SGPT 76 U/L (<40); AST/SGOT 71 U/L (<40); Albumin 3.3 gm/dL (3.2-5.2); Albumin/Globulin Ratio 1.2 (1.0-2.3); Alkaline Phosphatase 74 U/L (39-117); Bilirubin,Total 0.4 mg/dL (0.1-1.0); Blood Urea Nitrogen 82 mg/dL (8-23); Calcium 9.7 mg/dL (8.6-10.4); Carbon Dioxide 22 mmol/L (22-30); Chloride 104 mmol/L (96-108); Globulin 2.8 gm/dL (2.2-3.7); Glomerular Filtration Rate 23; Glucose 100 mg/dL (70-105)
[2023-04-18 23:34] LABS: Appearance,Urine CLOUDY (Clear); Bilirubin,Urine Negative (Negative); Color,Urine YELLOW; Culture Indicated,Urine yes; Glucose,Urine (UA) Negative (Negative); Ketones,Urine Negative (Negative); Leukocyte Esterase,Urine 500 /uL (Negative); Mucus,Urine FEW /hpf; Nitrate,Urine Negative (Negative); Protein,Urine 30 mg/dL (Negative); Specific Gravity,Urine 1.012 (1.000-1.035); Uric Acid Crystals,Urine MOD /hpf; Urine Blood >=1.0 mg/dL (Negative); Urine RBC 26 /hpf (0-3); Urine Squamous Epithelial Cell < 1 /hpf (0-4); Urine WBC 85 /hpf (0-4); Urobilinogen,Urine Negative
[2023-04-18] MEDS ORDERED: LORazepam 2 MG/ML VIAL ONE (23:55)
[2023-04-18] MEDS: LORazepam 2 MG/ML VIAL IV PRN (23:57)
[2023-04-19] MEDS: PANTOPRAZOLE 40 MG VIAL IV SCH ×2 (01:57→09:17)
[2023-04-19] MEDS: 0.9 % SODIUM CHLORIDE 1,000 ML IV SCH ×3 (01:58→03:43)
[2023-04-19] MEDS ORDERED: POTASSIUM CHLORIDE 20 MEQ, THIAMINE 100 MG, MVI, ADULT NO.4 WITH VIT K 10 ML in 0.9 % S... IV SCH ×2 (04:18→05:15)
[2023-04-19] MEDS ORDERED: POTASSIUM CHLORIDE 20 MEQ/10 ML VIAL IV ONE (04:28)
[2023-04-19] MEDS: 0.9 % SODIUM CHLORIDE 10 ML SYRINGE IV SCH ×5 (05:08→21:16)
[2023-04-19 08:25] LABS: Basophils # (Auto) 0.05 K/mcL (0.00-0.30); Basophils % (Auto) 0.5 % (0.0-2.0); Eosinophils # (Auto) 0.81 K/mcL (0.00-0.70); Eosinophils % (Auto) 8.3 % (0.0-7.0); Hemoglobin 12.1 g/dL (13.7-17.5); Lymphocytes # (Auto) 1.47 K/mcL (1.50-4.80); Mean Cell Volume 99.5 fL (80.0-100.0); Mean Corpuscular HGB Conc 31.8 g/dL (31.0-36.0); Monocytes # (Auto) 1.13 K/mcL (0.10-0.90); Monocytes % (Auto) 11.5 % (1.0-12.0); Neutrophils % (Auto) 62.4 % (38.0-78.0); Platelet Count 217 K/mcL (140-440); RBC 3.82 M/mcL (4.63-6.08); Red Cell Distribution Width 13.2 % (11.5-14.5); WBC 9.8 K/mcL (4.5-11.0)
[2023-04-19 08:25] LABS: ALT/SGPT 61 U/L (<40); AST/SGOT 53 U/L (<40); Albumin 2.9 gm/dL (3.2-5.2); Albumin/Globulin Ratio 1.2 (1.0-2.3); Alkaline Phosphatase 74 U/L (39-117); Bilirubin,Total 0.4 mg/dL (0.1-1.0); Blood Urea Nitrogen 66 mg/dL (8-23); Carbon Dioxide 23 mmol/L (22-30); Chloride 112 mmol/L (96-108); Globulin 2.5 gm/dL (2.2-3.7); Glomerular Filtration Rate 36; Glucose 85 mg/dL (70-105)
[2023-04-19] MEDS ORDERED: DOCUSATE SODIUM 100 MG CAPSULE PO SCH (09:00)
[2023-04-19] MEDS: MULTIVIT,THER IRON,CA,FA & MIN 1 TABLET PO SCH (09:17)
[2023-04-19] MEDS: FOLIC ACID 1 MG TABLET PO SCH (09:17)
[2023-04-19] MEDS: THIAMINE 100 MG TABLET PO SCH (09:17)
[2023-04-19] MEDS: cefTRIAXone 1 GM VIAL IV SCH (09:23)
[2023-04-19] MEDS: LORazepam 2 MG/ML VIAL IV PRN ×2 (09:44→15:37)
[2023-04-19] MEDS: OMEPRAZOLE 20 MG CAPSULE PO SCH (17:56)
[2023-04-19] MEDS: hydrOXYzine 25 MG TABLET PO PRN (19:38)
[2023-04-19] MEDS ORDERED: ASCORBIC ACID 500 MG TABLET PO SCH (21:00)
[2023-04-19] MEDS: ASCORBIC ACID 500 MG TABLET PO SCH (21:15)
[2023-04-19] MEDS: DOCUSATE SODIUM 100 MG CAPSULE PO SCH (21:15)
[2023-04-20 06:53] LABS: Basophils # (Auto) 0.08 K/mcL (0.00-0.30); Basophils % (Auto) 0.8 % (0.0-2.0); Eosinophils # (Auto) 0.88 K/mcL (0.00-0.70); Eosinophils % (Auto) 8.5 % (0.0-7.0); Hematocrit 39.7 % (40.1-51.0); Hemoglobin 12.7 g/dL (13.7-17.5); Lymphocytes # (Auto) 1.57 K/mcL (1.50-4.80); Lymphocytes % (Auto) 15.1 % (15.5-49.0); Mean Platelet Volume 11.7 fL (8.8-12.5); Monocytes % (Auto) 8.7 % (1.0-12.0); Neutrophils % (Auto) 64.8 % (38.0-78.0); Platelet Count 222 K/mcL (140-440); RBC 4.05 M/mcL (4.63-6.08); Red Cell Distribution Width 13.1 % (11.5-14.5); WBC 10.4 K/mcL (4.5-11.0)
[2023-04-20] MEDS: 0.9 % SODIUM CHLORIDE 10 ML SYRINGE IV SCH ×3 (07:14→23:01)
[2023-04-20] MEDS: LORazepam 2 MG/ML VIAL IV PRN ×3 (07:14→16:32)
[2023-04-20] MEDS: LEVOTHYROXINE 125 MCG TABLET PO SCH (07:15)
[2023-04-20] MEDS: OMEPRAZOLE 20 MG CAPSULE PO SCH ×2 (07:15→16:25)
[2023-04-20 07:29] LABS: ALT/SGPT 52 U/L (<40); AST/SGOT 35 U/L (<40); Albumin 3.2 gm/dL (3.2-5.2); Albumin/Globulin Ratio 1.3 (1.0-2.3); Alkaline Phosphatase 75 U/L (39-117); Bilirubin,Total 0.4 mg/dL (0.1-1.0); Blood Urea Nitrogen 38 mg/dL (8-23); Carbon Dioxide 27 mmol/L (22-30); Chloride 112 mmol/L (96-108); Globulin 2.4 gm/dL (2.2-3.7); Glomerular Filtration Rate 49; Glucose 84 mg/dL (70-105)
[2023-04-20] MEDS ORDERED: LEVOTHYROXINE 125 MCG TABLET PO SCH (07:30)
[2023-04-20] MEDS: hydrOXYzine 25 MG TABLET PO PRN (09:21)
[2023-04-20] MEDS: MULTIVIT,THER IRON,CA,FA & MIN 1 TABLET PO SCH (09:21)
[2023-04-20] MEDS: PYRIDOXINE 100 MG TABLET PO SCH (09:21)
[2023-04-20] MEDS: ASCORBIC ACID 500 MG TABLET PO SCH ×2 (09:21→23:01)
[2023-04-20] MEDS: FOLIC ACID 1 MG TABLET PO SCH (09:21)
[2023-04-20] MEDS: THIAMINE 100 MG TABLET PO SCH (09:21)
[2023-04-20] MEDS: DOCUSATE SODIUM 100 MG CAPSULE PO SCH ×2 (09:21→23:01)
[2023-04-20] MEDS: METOPROLOL TARTRATE 25 MG TABLET PO SCH (09:21)
[2023-04-20] MEDS: cefTRIAXone 1 GM VIAL IV SCH (09:33)
[2023-04-21] MEDS: hydrOXYzine 25 MG TABLET PO PRN ×2 (01:42→10:11)
[2023-04-21] MEDS: OMEPRAZOLE 20 MG CAPSULE PO SCH ×2 (06:49→16:46)
[2023-04-21] MEDS: LEVOTHYROXINE 125 MCG TABLET PO SCH (06:49)
[2023-04-21] MEDS: 0.9 % SODIUM CHLORIDE 10 ML SYRINGE IV SCH ×3 (06:50→20:12)
[2023-04-21 06:57] LABS: Basophils # (Auto) 0.09 K/mcL (0.00-0.30); Basophils % (Auto) 0.7 % (0.0-2.0); Eosinophils # (Auto) 1.15 K/mcL (0.00-0.70); Hematocrit 39.7 % (40.1-51.0); Hemoglobin 13.1 g/dL (13.7-17.5); Lymphocytes % (Auto) 13.4 % (15.5-49.0); Mean Cell Volume 95.2 fL (80.0-100.0); Mean Platelet Volume 11.7 fL (8.8-12.5); Monocytes % (Auto) 8.6 % (1.0-12.0); Neutrophils % (Auto) 65.4 % (38.0-78.0); Platelet Count 240 K/mcL (140-440); RBC 4.17 M/mcL (4.63-6.08); Red Cell Distribution Width 13.2 % (11.5-14.5); WBC 12.7 K/mcL (4.5-11.0)
[2023-04-21 07:03] LABS: ALT/SGPT 46 U/L (<40); AST/SGOT 26 U/L (<40); Albumin 3.3 gm/dL (3.2-5.2); Albumin/Globulin Ratio 1.3 (1.0-2.3); Alkaline Phosphatase 83 U/L (39-117); Bilirubin,Total 0.3 mg/dL (0.1-1.0); Blood Urea Nitrogen 25 mg/dL (8-23); Calcium 10.1 mg/dL (8.6-10.4); Carbon Dioxide 26 mmol/L (22-30); Chloride 104 mmol/L (96-108); Globulin 2.6 gm/dL (2.2-3.7); Glomerular Filtration Rate 59; Glucose 118 mg/dL (70-105)
[2023-04-21] MEDS: FOLIC ACID 1 MG TABLET PO SCH (08:16)
[2023-04-21] MEDS: METOPROLOL TARTRATE 25 MG TABLET PO SCH (08:16)
[2023-04-21] MEDS: THIAMINE 100 MG TABLET PO SCH (08:16)
[2023-04-21] MEDS: MULTIVIT,THER IRON,CA,FA & MIN 1 TABLET PO SCH (08:16)
[2023-04-21] MEDS: PYRIDOXINE 100 MG TABLET PO SCH (08:16)
[2023-04-21] MEDS: DOCUSATE SODIUM 100 MG CAPSULE PO SCH ×2 (08:16→20:12)
[2023-04-21] MEDS: cefTRIAXone 1 GM VIAL IV SCH (08:16)
[2023-04-21] MEDS: ASCORBIC ACID 500 MG TABLET PO SCH ×2 (08:17→20:12)
[2023-04-21] MEDS: HYDROmorphone 0.5 MG/0.5 ML SYRINGE IV PRN ×2 (12:27→14:56)
[2023-04-21] MEDS: LORazepam 2 MG/ML VIAL IV PRN ×2 (13:31→20:13)
[2023-04-21] MEDS: SENNOSIDES 1 TABLET PO PRN (20:12)
[2023-04-22] MEDS: 0.9 % SODIUM CHLORIDE 10 ML SYRINGE IV SCH ×3 (05:18→20:03)
[2023-04-22] MEDS: HYDROmorphone 0.5 MG/0.5 ML SYRINGE IV PRN (05:18)
[2023-04-22 06:44] LABS: Basophils % (Auto) 0.8 % (0.0-2.0); Eosinophils # (Auto) 1.04 K/mcL (0.00-0.70); Eosinophils % (Auto) 7.8 % (0.0-7.0); Hematocrit 38.6 % (40.1-51.0); Hemoglobin 12.7 g/dL (13.7-17.5); Lymphocytes # (Auto) 1.76 K/mcL (1.50-4.80); Lymphocytes % (Auto) 13.3 % (15.5-49.0); Mean Cell Volume 96.5 fL (80.0-100.0); Mean Corpuscular HGB Conc 32.9 g/dL (31.0-36.0); Mean Platelet Volume 11.5 fL (8.8-12.5); Monocytes # (Auto) 0.97 K/mcL (0.10-0.90); Monocytes % (Auto) 7.3 % (1.0-12.0); Platelet Count 221 K/mcL (140-440); Red Cell Distribution Width 13.2 % (11.5-14.5); WBC 13.3 K/mcL (4.5-11.0)
[2023-04-22 06:55] LABS: ALT/SGPT 37 U/L (<40); AST/SGOT 20 U/L (<40); Albumin 3.1 gm/dL (3.2-5.2); Albumin/Globulin Ratio 1.2 (1.0-2.3); Alkaline Phosphatase 89 U/L (39-117); Bilirubin,Total 0.2 mg/dL (0.1-1.0); Blood Urea Nitrogen 21 mg/dL (8-23); Calcium 10.1 mg/dL (8.6-10.4); Carbon Dioxide 29 mmol/L (22-30); Chloride 104 mmol/L (96-108); Globulin 2.6 gm/dL (2.2-3.7); Glomerular Filtration Rate 59; Glucose 98 mg/dL (70-105)
[2023-04-22] MEDS: DOCUSATE SODIUM 100 MG CAPSULE PO SCH ×2 (08:46→20:02)
[2023-04-22] MEDS: ASCORBIC ACID 500 MG TABLET PO SCH ×2 (08:46→20:02)
[2023-04-22] MEDS: PYRIDOXINE 100 MG TABLET PO SCH (08:46)
[2023-04-22] MEDS: LEVOTHYROXINE 125 MCG TABLET PO SCH (08:46)
[2023-04-22] MEDS: METOPROLOL TARTRATE 25 MG TABLET PO SCH (08:46)
[2023-04-22] MEDS: FOLIC ACID 1 MG TABLET PO SCH (08:46)
[2023-04-22] MEDS: MULTIVIT,THER IRON,CA,FA & MIN 1 TABLET PO SCH (08:46)
[2023-04-22] MEDS: cefTRIAXone 1 GM VIAL IV SCH (08:46)
[2023-04-22] MEDS: THIAMINE 100 MG TABLET PO SCH (08:46)
[2023-04-22] MEDS: OMEPRAZOLE 20 MG CAPSULE PO SCH ×2 (08:47→16:32)
[2023-04-22] MEDS: hydrOXYzine 25 MG TABLET PO PRN (08:48)
[2023-04-22] MEDS: BISACODYL 5 MG TABLET PO PRN (08:48)
[2023-04-22] MEDS ORDERED: HALOPERIDOL LACTATE 2 MG/ML PO PRN (09:09)
[2023-04-22] MEDS ORDERED: HALOPERIDOL 1 MG TABLET PO SCH (09:15)
[2023-04-22] MEDS ORDERED: HALOPERIDOL 1 MG TABLET PO PRN (09:30)
[2023-04-23] MEDS: hydrOXYzine 25 MG TABLET PO PRN ×2 (03:40→10:22)
[2023-04-23] MEDS: HYDROmorphone 0.5 MG/0.5 ML SYRINGE IV PRN ×2 (04:25→10:35)
[2023-04-23 06:44] LABS: Basophils % (Auto) 0.8 % (0.0-2.0); Eosinophils # (Auto) 1.12 K/mcL (0.00-0.70); Hematocrit 38.2 % (40.1-51.0); Hemoglobin 12.5 g/dL (13.7-17.5); Lymphocytes # (Auto) 1.88 K/mcL (1.50-4.80); Lymphocytes % (Auto) 15.2 % (15.5-49.0); Mean Corpuscular HGB Conc 32.7 g/dL (31.0-36.0); Mean Platelet Volume 11.4 fL (8.8-12.5); Monocytes % (Auto) 8.9 % (1.0-12.0); Neutrophils % (Auto) 60.5 % (38.0-78.0); Platelet Count 219 K/mcL (140-440); RBC 4.02 M/mcL (4.63-6.08); Red Cell Distribution Width 13.2 % (11.5-14.5); WBC 12.4 K/mcL (4.5-11.0)
[2023-04-23 07:03] LABS: ALT/SGPT 36 U/L (<40); AST/SGOT 26 U/L (<40); Albumin/Globulin Ratio 1.1 (1.0-2.3); Alkaline Phosphatase 91 U/L (39-117); Bilirubin,Total 0.2 mg/dL (0.1-1.0); Blood Urea Nitrogen 18 mg/dL (8-23); Calcium 10.1 mg/dL (8.6-10.4); Carbon Dioxide 29 mmol/L (22-30); Chloride 103 mmol/L (96-108); Globulin 2.7 gm/dL (2.2-3.7); Glomerular Filtration Rate 73; Glucose 104 mg/dL (70-105)
[2023-04-23] MEDS: MULTIVIT,THER IRON,CA,FA & MIN 1 TABLET PO SCH (10:22)
[2023-04-23] MEDS: METOPROLOL TARTRATE 25 MG TABLET PO SCH (10:22)
[2023-04-23] MEDS: OMEPRAZOLE 20 MG CAPSULE PO SCH ×3 (10:22→17:20)
[2023-04-23] MEDS: THIAMINE 100 MG TABLET PO SCH (10:22)
[2023-04-23] MEDS: PYRIDOXINE 100 MG TABLET PO SCH (10:22)
[2023-04-23] MEDS: ASCORBIC ACID 500 MG TABLET PO SCH ×2 (10:22→22:09)
[2023-04-23] MEDS: FOLIC ACID 1 MG TABLET PO SCH (10:23)
[2023-04-23] MEDS: LEVOTHYROXINE 125 MCG TABLET PO SCH (10:23)
[2023-04-23] MEDS: DOCUSATE SODIUM 100 MG CAPSULE PO SCH ×2 (10:23→22:10)
[2023-04-23] MEDS: cefTRIAXone 1 GM VIAL IV SCH (10:24)
[2023-04-23] MEDS: ACETAMINOPHEN 325 MG TABLET PO PRN (13:09)
[2023-04-23] MEDS: SENNOSIDES 1 TABLET PO PRN (13:09)
[2023-04-23] MEDS: risperiDONE 1 MG TABLET PO SCH (13:10)
[2023-04-23] MEDS: 0.9 % SODIUM CHLORIDE 10 ML SYRINGE IV SCH ×2 (13:13→22:12)
[2023-04-23] MEDS ORDERED: NITROGLYCERIN 0.4 MG TAB.SUBL SL ONE ×2 (19:32→19:38)
[2023-04-23] MEDS ORDERED: 0.9 % SODIUM CHLORIDE 1,000 ML IV SCH (19:45)
[2023-04-23 20:07] LABS: Basophils # (Auto) 0.11 K/mcL (0.00-0.30); Basophils % (Auto) 0.9 % (0.0-2.0); Eosinophils # (Auto) 1.12 K/mcL (0.00-0.70); Hemoglobin 12.5 g/dL (13.7-17.5); Lymphocytes # (Auto) 2.37 K/mcL (1.50-4.80); Lymphocytes % (Auto) 19.1 % (15.5-49.0); Mean Cell Volume 94.8 fL (80.0-100.0); Mean Corpuscular HGB Conc 32.9 g/dL (31.0-36.0); Mean Platelet Volume 11.2 fL (8.8-12.5); Monocytes # (Auto) 1.04 K/mcL (0.10-0.90); Monocytes % (Auto) 8.4 % (1.0-12.0); Neutrophils % (Auto) 58.5 % (38.0-78.0); Platelet Count 229 K/mcL (140-440); RBC 4.01 M/mcL (4.63-6.08); Red Cell Distribution Width 13.3 % (11.5-14.5); WBC 12.4 K/mcL (4.5-11.0)
[2023-04-23 20:28] LABS: ALT/SGPT 35 U/L (<40); AST/SGOT 21 U/L (<40); Albumin 3.3 gm/dL (3.2-5.2); Albumin/Globulin Ratio 1.3 (1.0-2.3); Alkaline Phosphatase 93 U/L (39-117); Bilirubin,Total 0.2 mg/dL (0.1-1.0); Blood Urea Nitrogen 16 mg/dL (8-23); Calcium 10.5 mg/dL (8.6-10.4); Carbon Dioxide 25 mmol/L (22-30); Chloride 101 mmol/L (96-108); Globulin 2.6 gm/dL (2.2-3.7); Glomerular Filtration Rate 65; Glucose 114 mg/dL (70-105)
[2023-04-23] MEDS: BISACODYL 5 MG TABLET PO PRN (22:10)
[2023-04-24] MEDS: 0.9 % SODIUM CHLORIDE 10 ML SYRINGE IV SCH ×4 (05:45→23:08)
[2023-04-24 06:39] LABS: Basophils # (Auto) 0.12 K/mcL (0.00-0.30); Eosinophils # (Auto) 1.04 K/mcL (0.00-0.70); Eosinophils % (Auto) 8.5 % (0.0-7.0); Hematocrit 37.3 % (40.1-51.0); Hemoglobin 12.4 g/dL (13.7-17.5); Lymphocytes # (Auto) 2.09 K/mcL (1.50-4.80); Lymphocytes % (Auto) 17.1 % (15.5-49.0); Mean Cell Volume 96.1 fL (80.0-100.0); Mean Corpuscular HGB Conc 33.2 g/dL (31.0-36.0); Mean Platelet Volume 11.6 fL (8.8-12.5); Monocytes # (Auto) 1.04 K/mcL (0.10-0.90); Monocytes % (Auto) 8.5 % (1.0-12.0); Neutrophils % (Auto) 62.3 % (38.0-78.0); Platelet Count 235 K/mcL (140-440); RBC 3.88 M/mcL (4.63-6.08); Red Cell Distribution Width 13.6 % (11.5-14.5); WBC 12.2 K/mcL (4.5-11.0)
[2023-04-24] MEDS: LEVOTHYROXINE 125 MCG TABLET PO SCH (07:14)
[2023-04-24] MEDS: OMEPRAZOLE 20 MG CAPSULE PO SCH ×2 (07:14→17:14)
[2023-04-24 07:27] LABS: ALT/SGPT 32 U/L (<40); AST/SGOT 22 U/L (<40); Albumin 3.2 gm/dL (3.2-5.2); Albumin/Globulin Ratio 1.2 (1.0-2.3); Alkaline Phosphatase 85 U/L (39-117); Bilirubin,Total 0.2 mg/dL (0.1-1.0); Blood Urea Nitrogen 12 mg/dL (8-23); Carbon Dioxide 24 mmol/L (22-30); Chloride 106 mmol/L (96-108); Globulin 2.7 gm/dL (2.2-3.7); Glomerular Filtration Rate 73; Glucose 107 mg/dL (70-105)
[2023-04-24] MEDS: METOPROLOL TARTRATE 25 MG TABLET PO SCH (08:40)
[2023-04-24] MEDS: risperiDONE 1 MG TABLET PO SCH (08:40)
[2023-04-24] MEDS: FOLIC ACID 1 MG TABLET PO SCH (08:40)
[2023-04-24] MEDS: DOCUSATE SODIUM 100 MG CAPSULE PO SCH ×2 (08:40→20:45)
[2023-04-24] MEDS: THIAMINE 100 MG TABLET PO SCH (08:40)
[2023-04-24] MEDS: ASCORBIC ACID 500 MG TABLET PO SCH ×2 (08:40→20:46)
[2023-04-24] MEDS: PYRIDOXINE 100 MG TABLET PO SCH (08:41)
[2023-04-24] MEDS: ACETAMINOPHEN 325 MG TABLET PO PRN ×2 (08:41→20:44)
[2023-04-24] MEDS: MULTIVIT,THER IRON,CA,FA & MIN 1 TABLET PO SCH (08:41)
[2023-04-24] MEDS: cefTRIAXone 1 GM VIAL IV SCH (09:12)
[2023-04-24] MEDS ORDERED: HALOPERIDOL LACTATE 5 MG/ML VIAL IM PRN (17:41)
[2023-04-25 06:44] LABS: Basophils # (Auto) 0.13 K/mcL (0.00-0.30); Basophils % (Auto) 1.1 % (0.0-2.0); Eosinophils # (Auto) 1.01 K/mcL (0.00-0.70); Eosinophils % (Auto) 8.5 % (0.0-7.0); Hematocrit 37.4 % (40.1-51.0); Hemoglobin 12.1 g/dL (13.7-17.5); Lymphocytes # (Auto) 2.28 K/mcL (1.50-4.80); Lymphocytes % (Auto) 19.1 % (15.5-49.0); Mean Cell Volume 97.1 fL (80.0-100.0); Mean Corpuscular HGB Conc 32.4 g/dL (31.0-36.0); Mean Platelet Volume 10.9 fL (8.8-12.5); Monocytes # (Auto) 1.07 K/mcL (0.10-0.90); Neutrophils % (Auto) 60.1 % (38.0-78.0); Platelet Count 248 K/mcL (140-440); RBC 3.85 M/mcL (4.63-6.08); Red Cell Distribution Width 13.4 % (11.5-14.5)
[2023-04-25] MEDS: LEVOTHYROXINE 125 MCG TABLET PO SCH (07:40)
[2023-04-25] MEDS: OMEPRAZOLE 20 MG CAPSULE PO SCH (07:40)
[2023-04-25] MEDS: FOLIC ACID 1 MG TABLET PO SCH (08:50)
[2023-04-25] MEDS: MULTIVIT,THER IRON,CA,FA & MIN 1 TABLET PO SCH (08:50)
[2023-04-25] MEDS: DOCUSATE SODIUM 100 MG CAPSULE PO SCH (08:50)
[2023-04-25] MEDS: THIAMINE 100 MG TABLET PO SCH (08:50)
[2023-04-25] MEDS: METOPROLOL TARTRATE 25 MG TABLET PO SCH (08:50)
[2023-04-25] MEDS: risperiDONE 1 MG TABLET PO SCH (08:50)
[2023-04-25] MEDS: PYRIDOXINE 100 MG TABLET PO SCH (08:51)
[2023-04-25] MEDS: ASCORBIC ACID 500 MG TABLET PO SCH (08:51)
[2023-04-25] MEDS: 0.9 % SODIUM CHLORIDE 10 ML SYRINGE IV SCH ×2 (08:51→14:20)
[2023-04-25] MEDS ORDERED: LOSARTAN 25 MG TABLET PO SCH (09:00)
[2023-04-25] MEDS: hydrALAZINE 20 MG/ML VIAL IV PRN ×2 (09:32→14:16)
[2023-04-25] MEDS ORDERED: levETIRAcetam 500 MG in 0.9 % SODIUM CHLORIDE 100 ML IV SCH (10:30)
[2023-04-26] MEDS ORDERED: levETIRAcetam 500 MG TABLET PO SCH (09:00)
[2023-05-01 08:00] LABS: Cannabinoid Confirmation Negative
== END 2023-04-25 16:36 | disposition left against medical advice (07) | DRG 871 ==
LOC: ED 17:58 → ICU 23:23
PROVIDERS: ADMIT Internal Medicine; ATTEND Internal Medicine